=== PATIENT | female | born 1945 | race Caucasian/White ===

== ENCOUNTER 2017-02-18 15:04 | Inpatient (IN) | payer OTHER ==
--- NOTE | ~2017-02-18 | BMI ---
[facility] Nutrition Therapy DATE: 02/19/17 Patient: MARTIN Allen YING Physician: GAURAV Address: [address] [place] [address] Room/Bed: [address] [place] [address], Zip: [place] [address] Admit Date: 02/18/17 Date of : [birth year] Height: 5 7 Weight: 264 120 HIGH BMI NOTE: ANTHROPOMETRICS: HT: 67" WT: 120 KG BMI: 41.4 INTERVENTION: 1. HEART HEALTHY DIET RECOMMENDATIONS: 1. CONTINUE CURRENT DIET IN ORDER TO PROMOTE GRADUAL WEIGHT LOSS TOWARDS A HEALTHY BMI. Respectfully, HAO WATSNO RD, LD Food and Nutritional Services [facility] cc: client file
--- NOTE | ~2017-02-18 | CR170 ---
[facility] A Service of [facility] RADIOLOGY TEXT RESULTS PATIENT: MARTIN HE LOCATION: [place] [address] : [birth year] UNIT #: [id number] AGE: [address]: Norman Mota MD SEX: F ORDER DR: [id number] [facility] [address] [facility]. [place], [place] [address] [id number] I MR#: [id number] Acc #: [id number] NAME: MARTIN HE : 1945 SEX: F STUDY DATE/TIME: 02/19/2017 9:31 UNIT: [facility] ROOM: [facility] STUDY DESCRIPTION: CR Knee 2 Views Rt Attending Physician: Norman Mota M.D. Ordering Physician: Physician Non-Staff Primary Care Physician: Primary Care Physician No MEDICAL IMAGING REPORT This report is preliminary unless electronic signature is present EXAM Right knee 3 views HISTORY Right knee pain and weakness began today after awaking. Difficulty moving for 8 weeks. FINDINGS 3 views are submitted. There are postop changes of right total knee arthroplasty. There is generalized osteopenia. The patient appears to have diffuse soft tissue swelling in the extremity. No fractures are seen. CONCLUSION Postop right total knee arthroplasty. Osteopenia. Diffuse soft tissue swelling. Dictated by... Patrick Sanchez M.D. THIS IS AN ELECTRONICALLY VERIFIED REPORT Patrick Sanchez M.D. at 02/22/2017 2:43 PM JOSE/lazara TD: 02/19/2017 10:31 JOB #: [id number] MEDICAL IMAGING REPORT Page 1 of 1 COPY
--- NOTE | ~2017-02-18 | CO ---
Unit #: [id number] #: [id number] Patient: MARTIN HE [id number] [address] [place], [place] [address] [id number] I MR#: [id number] NAME: MARTIN HE ROOM: 462 Age: 71 Sex: F Admission Date: 02/18/2017 : 1945 Attending Physician: Norman Mota M.D. Consultation Date: 02/18/2017 CONSULTATION REPORT CHIEF COMPLAINT Painful right total knee arthroplasty. HISTORY OF PRESENT ILLNESS Ms. Cid is a 71-year-old female, who was admitted to the hospital for cellulitis of the right lower extremity and right knee pain with inability to ambulate. She states that this began approximately 2 months ago. At that time, she was admitted to [facility] and treated for cellulitis of the left lower extremity and bacteremia. She was discharged to rehab, but is now returned with actually increasing right knee pain. She describes this pain with attempted weightbearing and range of motion of the knee. She reports redness and swelling along the entirety of the extremity. She has difficulty putting full weight on the affected extremity. This has resulted in significant immobility. She underwent a CT scan recently as well, which demonstrated stranding consistent with cellulitis. There is also note made of a right knee effusion. This studies were done at the outside facility and are not available for review. PAST MEDICAL HISTORY Hypertension, asthma, gastroesophageal reflux, endometrial cancer, hypoglycemia, former smoker. PAST SURGICAL HISTORY Hysterectomy, cholecystectomy, appendectomy, right total knee arthroplasty approximately 15 years prior, resected melanoma from her right lower extremity. HOME MEDICATIONS Prilosec, gabapentin, Zoloft, Spiriva, Lasix, isosorbide, losartan, Singulair, QVAR, doxycycline, Lasix, melatonin, Nitrostat, hydrocodone, Tylenol, Zofran, and albuterol. ALLERGIES Penicillin, levofloxacin, and IV dye. SOCIAL HISTORY The patient is . She is a former smoker, but has not smoked in nearly 30 years. She denies alcohol or illicit drug use. She is not working. FAMILY HISTORY Noncontributory to the current illness. Unit #: [id number] #: [id number] Patient: MARTIN HE A REVIEW OF SYSTEMS Ten systems are reviewed and negative except with regard to musculoskeletal complaints as noted above. PHYSICAL EXAMINATION GENERAL APPEARANCE: Overweight, morbidly obese female examined supine on the hospital bed. PSYCHIATRIC: Awake, alert, and oriented to person, place, time, and situation with normal range of mood and affect. CARDIAC: Regular rate and rhythm. PULMONARY: No increased work of breathing. Symmetric chest rise. ABDOMEN: Nondistended. NEUROLOGIC: Intact motor function throughout. SKIN: There is cellulitis around the right lower extremity. The previous surgical incision is noted for total knee arthroplasty. There is mild warmth, but this is along the entirety of the lower extremity and not confined to over the knee joint itself. VASCULAR: Her foot is warm and well perfused. LYMPHATIC: She has lymphedema affecting the right lower extremity, but with no focal lymphadenopathy. MUSCULOSKELETAL: She has pain with attempted logrolling of the right leg as well as with range of motion of the knee. She has motion from approximately 15 degrees of extension to 40 degrees of flexion. DIAGNOSTIC STUDIES LABORATORY RESULTS: Hemoglobin is 10.3. ESR is 113. Urinalysis demonstrates 2+ bacteria. IMAGING STUDIES: 1. No films of the knee are available for review. 2. CT report from the outside facility demonstrates a knee effusion. No comments made on loosening of the components. IMPRESSION This is a 71-year-old female with a painful right total knee arthroplasty concerning for loosening or possible deep infection. We will obtain standard radiographic series in the right knee. We will attempt an aspiration. We will follow up on the remainder of the labs or order CRP as well. This has not been completed ordered. Further disposition pending the results of the aspiration and radiographs. Dictated by... Hosea Elise M.D. RITA/krystina TD: 02/22/2017 00:50 JOB #: [id number] Unit #: [id number] #: [id number] Patient: MARTIN HE A CONSULTATION REPORT Page 1 of 1 X Hosea Elise MD CONSULTATION REPORT
--- NOTE | ~2017-02-18 | CO ---
Unit #: [id number] #: [id number] Patient: MARTIN HE [id number] [address] [place], [place] [address] [id number] I MR#: [id number] NAME: MARTIN HE ROOM: 462 Age: 71 Sex: F Admission Date: 02/18/2017 : 1945 Attending Physician: Norman Mota M.D. Consultation Date: 02/19/2017 CONSULTATION REPORT REASON FOR CONSULTATION Right lower extremity cellulitis. HISTORY OF PRESENT ILLNESS The patient is a 71-year-old, morbidly obese female with hypertension, asthma, gastroesophageal reflux disease, admitted with right lower extremity pain, swelling, redness and there are some concerns of an abnormal CT scan, which was done through a senior care. The patient was admitted to [facility] with left lower extremity problems, was treated and released, had some pancytopenia and was transferred to rehab and ended up coming over here as an outpatient. CT scan was done and diagnosed with right lower extremity cellulitis, and a possible urinary tract infection, started on Rocephin and vancomycin. Infectious Diseases consultation requested for further evaluation and antibiotic management. No fevers, chills, cough, congestion, nausea, vomiting, diarrhea, chest pain, shortness of breath, headaches or dizziness. The CT scan report is not available, but per notes, it showed evidence of cellulitis. No collection of fluid or gas. PAST MEDICAL HISTORY 1. Hypertension. 2. Asthma. 3. Gastroesophageal reflux disease. 4. Uterine cancer. 5. Hypoglycemia. 6. Hysterectomy. 7. Cardiac catheterization. 8. Cholecystectomy. 9. Appendectomy. 10. Bilateral knee replacement. 11. Melanomas removed from right lower extremity. SOCIAL HISTORY Noncontributory. FAMILY HISTORY Noncontributory. ALLERGIES Penicillin, Levaquin and IV dye. CURRENT MEDICATIONS List reviewed. Antibiotics include Rocephin and vancomycin. Unit #: [id number] #: [id number] Patient: MARTIN HE PHYSICAL EXAMINATION GENERAL: Lying in bed, does not seem to be in any distress. VITAL SIGNS: Temperature 97.6, no fever since admission. Pulse 54, respirations 18, blood pressure 109/40. HEENT: Unremarkable. CHEST: Clear to auscultation. HEART: Normal S1, S2. ABDOMEN: Soft, nontender. EXTREMITIES: Right lower extremity has diffuse swelling, which actually is not really different from the left side. There are some areas of erythema, which is scattered around from the knee down to the ankle. No open areas of skin breakdown, bleeding or drainage was noted. DIAGNOSTIC STUDIES IMAGING STUDIES: Lower extremity Dopplers negative for deep vein thrombosis. Knee x-ray shows arthroplasty and osteopenia and some diffuse soft tissue swelling. LABORATORY RESULTS: BUN 28, creatinine 1.3. WBC 4.5, hemoglobin 9, platelets 125. Urinalysis has 1+ leukocyte esterase, 0 to 2 wbc's, 2+ bacteria. Urine culture is E. coli. Blood culture is negative so far. ASSESSMENT 1. Right lower extremity cellulitis. 2. Doubt urinary tract infection. PLAN At this time, I will go ahead and continue with vancomycin and Rocephin. Follow up on blood cultures. Monitor response. Further recommendation depending upon the course. I would like to thank Dr. Mota for requesting us to participate in the care of this patient. We will follow this patient along with you. Dictated by... Joon Early TD: 02/21/2017 00:03 JOB #: [id number] CONSULTATION REPORT Page 1 of 1 X Tyrone Lara MD CONSULTATION REPORT
--- NOTE | ~2017-02-18 | DS ---
Unit #: [id number] #: [id number] Patient: MARTIN HE [id number] [address] [place], [place] [address] [id number] I MR#: [id number] NAME: MARTIN HE. ROOM: 462 Age: 71 Sex: F Admission Date: 02/18/2017 : 1945 Discharge Date: 03/02/2017 Attending Physician: Leslie Perez M.D. Primary Care Physician: No Primary Care Physician DISCHARGE SUMMARY ADDENDUM HOSPITAL COURSE The patient remained in the hospital awaiting precertification for rehab, which is still currently pending. She was seen on the afternoon of the by Dr. Perez and her discharge antibiotics have been adjusted. She is now taking vancomycin 1500 mg IV q.24 h. and cefepime 2 g IV q.12 h. through 04/02/2017. Pharmacy at her discharge facility will need to check vancomycin levels and adjust dosing as necessary. She needs twice weekly CBC, BMP, CRP and sedimentation rate with results faxed to Dr. Perez and reviewed by the facility director and to call Dr. Perez if creatinine is greater than or equal to 1.5 or any abnormal labs. She has been dosed Coumadin 7.5 mg today and will get INR followup on 03/03/2017 with results called to Dr. Umana. Goal INR is 2-3, for duration per Dr. Umana. Dictated by... Leslie Perez M.D. MANUELA/tom TD: 03/02/2017 15:45 JOB #: [id number] DISCHARGE SUMMARY Page 1 of 1 X Leslie Perez MD DISCHARGE SUMMARY
--- NOTE | ~2017-02-18 | OR ---
Unit #: [id number] #: [id number] Patient: MARTIN HE [id number] [address] [address] [id number] I MR#: [id number] NAME: MARTIN HE ROOM: 462 Date of Procedure: 02/18/2017 Admission Date: 02/18/2017 Surgeon: Hosea Elise M.D. : 1945 Attending Physician: Norman Mota M.D. OPERATIVE REPORT PREPROCEDURE DIAGNOSIS Right knee pain and effusion. POSTPROCEDURE DIAGNOSIS Right knee pain and effusion. PROCEDURE PERFORMED Right knee aspiration. INDICATIONS FOR PROCEDURE Ms. Cid is a 71-year-old female with a painful total knee arthroplasty and elevated lab indices and clinical exam concerning for septic arthritis or an infected total joint arthroplasty. Aspiration is indicated. DESCRIPTION OF PROCEDURE The patient was identified and prepped with Betadine solution. The superolateral portal site was utilized to attempt an aspiration of the right knee. The needle was advanced down through subcutaneous tissue and felt to contact further with the distal femur and redirected. Scant amount of bloody fluid was obtained. No significant fluid collection was identified. This was a dry aspirate. The wound was dressed with a simple Band-Aid. We will follow up with the results of the plain film radiographs. She may need further workup with nuclear medicine studies such as a white blood cell labeled bone scan. Dictated by... Joon Honeycutt/krystina TD: 02/22/2017 00:11 JOB #: [id number] Unit #: [id number] #: [id number] Patient: MARTIN HE OPERATIVE REPORT Page 1 of 1 X Hosea Elise MD PROCEDURE OPERATIVE NOTE
--- NOTE | ~2017-02-18 | US85 ---
[facility] A Service of [facility] & [facility] RADIOLOGY TEXT RESULTS PATIENT: MARTIN HE LOCATION: [place] [address]- : [birth year] UNIT #: [id number] AGE: [address]: Norman Mota MD SEX: F ORDER DR: [id number] [facility] [address] [place], [place] [address] [id number] I MR#: [id number] Acc #: [id number] NAME: MARTIN HE : 1945 SEX: F STUDY DATE/TIME: 02/19/2017 14:58 UNIT: [facility] ROOM: [facility] STUDY DESCRIPTION: LE Veins Unilat or Ltd Stdy Attending Physician: Norman Mota M.D. Ordering Physician: [facility] Primary Care Physician: No Primary Care Physician MEDICAL IMAGING REPORT This report is preliminary unless electronic signature is present EXAM Right lower extremity venous Doppler 02/19/2017 HISTORY 71-year-old female, right lower extremity pain x8 weeks, history of knee replacement 15 years ago. FINDINGS 2-D Doppler evaluation of the right lower extremity demonstrates normal flow and compressibility of the major veins of the right lower extremity. No intraluminal thrombus identified. The superficial veins appear patent. There are a few benign-appearing, inguinal lymph nodes. IMPRESSION No sonographic evidence of DVT within the right lower extremity. Dictated by... Titi Bowers M.D. THIS IS AN ELECTRONICALLY VERIFIED REPORT Titi Bowers M.D. at 02/19/2017 7:11 PM Carl TD: 02/19/2017 18:00 JOB #: [id number] MEDICAL IMAGING REPORT Page 1 of 1 COPY
--- NOTE | ~2017-02-18 | NM4 ---
[facility] A Service of [facility] & [facility] RADIOLOGY TEXT RESULTS PATIENT: MARTIN HE LOCATION: [facility] 46- : [birth year] UNIT #: [id number] AGE: [address]: Norman Mota MD SEX: F ORDER DR: [id number] [place] [id number] [facility]. [place], [place] [address] [id number] I MR#: [id number] Acc #: [id number] NAME: MARTIN HE : 1945 SEX: F STUDY DATE/TIME: 02/22/2017 9:16 UNIT: [facility] ROOM: [facility] STUDY DESCRIPTION: MI Bone or Joint 3 Phase Study Attending Physician: Norman Mota M.D. Ordering Physician: Norman Mota M.D. Primary Care Physician: Primary Care Physician No MEDICAL IMAGING REPORT This report is preliminary unless electronic signature is present EXAM Three-phase bone scan HISTORY 71-year-old female, erythema and swelling, right lower extremity. Possible loosening of the tibial component in this patient with a total knee arthroplasty. COMPARISON Right knee films, 02/19/2017 FINDINGS Three-phase bone scan was performed centered over the knees following intravenous administration of 24.4 mCi technetium 99m MDP. Examination demonstrates increased flow to the right lower extremity localizing primarily about the right knee. Immediate blood pool and delayed phase imaging demonstrates increased uptake about the right knee both in the suprapatellar soft tissues but also within the patella and additional intense activity along the proximal tibia beneath the tibial component. In the appropriate clinical setting this would be consistent with loosening. Conventional radiographs does demonstrate some lucency beneath the tibial tray and would be supportive of loosening. Photopenic area is noted within the left knee consistent with left total knee arthroplasty but normal symmetric uptake about the left knee. IMPRESSION Abnormal three-phase bone scan with three-phase positive activity about the right knee with localizing activity primarily to the proximal tibia beneath the tibial component of the patient's right total knee arthroplasty. This in conjunction with conventional radiographic findings is concerning for loosening of the tibial component. Dictated by... [facility] A Service of [facility] & [facility] RADIOLOGY TEXT RESULTS PATIENT: MARTIN HE LOCATION: [place] [address] : [birth year] UNIT #: [id number] AGE: [address]: Norman Mota MD SEX: F ORDER DR: Titi Bowers M.D. THIS IS AN ELECTRONICALLY VERIFIED REPORT Titi Bowers M.D. at 02/23/2017 7:29 AM Jesus TD: 02/22/2017 16:22 JOB #: [id number] MEDICAL IMAGING REPORT Page 1 of 1 COPY
--- NOTE | ~2017-02-18 | CO ---
Unit #: [id number] #: [id number] Patient: MARTIN HE [id number] [address] [place], [place] [address] [id number] I MR#: [id number] NAME: MARTIN HE ROOM: 462 Age: 71 Sex: F Admission Date: 02/18/2017 : 1945 Attending Physician: Norman Mota M.D. Consultation Date: 02/23/2017 CONSULTATION REPORT REASON FOR CONSULTATION Right total knee pain and swelling. HISTORY OF PRESENT ILLNESS Ms. He is a 71-year-old female, who presents today with right total knee pain. She has been treated for right lower extremity cellulitis. Dr. Elise was consulted for right lower extremity cellulitis last week. There was concern for possible right total knee infection. He apparently aspirated the knee, and no fluid was able to be extracted. The patient did have an elevated CRP and sedimentation rate. He ordered a bone scan, which was positive for loose tibial prosthesis. Today, the patient denies any redness or swelling. She reports that the pain is slowly getting better. She was originally seen at [facility] two months ago for left knee pain and swelling. She was started on antibiotics. This improved. When the patient went to a rehab facility for discharge, she noticed the same problems on the right side. She was started on oral doxycycline. Today. She denies any increased pain. She does report history of the inability to weight bear because of pain prior to her admission. PAST MEDICAL HISTORY Significant for hypertension, asthma, GERD, uterine cancer, former smoker, hypoglycemia, and cardiac catheterization. MEDICATIONS Include Prilosec, gabapentin, Zoloft, Spiriva, Lasix, isosorbide, losartan, Singulair, QVAR, doxycycline, Lasix, melatonin, Nitrostat, hydrocodone, Tylenol, Zofran, and albuterol. ALLERGIES Penicillin, Levaquin, and IV dye. PAST SURGICAL HISTORY Significant for hysterectomy, cholecystectomy, appendectomy, bilateral total knee arthroplasty, and melanoma excision. SOCIAL HISTORY The patient is a former smoker, quit about 28 years ago. She denies any alcohol or illicit drug use. FAMILY HISTORY Insignificant. Unit #: [id number] #: [id number] Patient: MARTIN HE REVIEW OF SYSTEMS A 10-organ systems reviewed. The patient denies any blurry vision, congestion, sore throat, shortness of breath, chest pain, abdominal pain, urinary incontinence, numbness, tingling, skin ulcers or lesions, anxiety, or depression. Positive for joint pain. PHYSICAL EXAMINATION GENERAL: No acute distress. Alert and oriented x3. VITAL SIGNS: Temperature 97.9, pulse 80, respirations 18, blood pressure 115/83. HEENT: PERRLA. Nonicteric sclerae. THORAX: Trachea midline. No thyromegaly. CARDIAC: S1 and S2. No extra sounds or murmurs. LUNGS: Clear to auscultation. No rales or rhonchi. ABDOMEN: Nondistended and nontender. Positive bowel sounds. : Deferred. MUSCULOSKELETAL: No tenderness to palpation. Range of motion is between 0 and 60 today. Positive swelling and edema to the entire right lower extremity. NEUROLOGIC: Cranial nerves 2 through 12 intact. SKIN: Cool and dry. PSYCHIATRIC: Good insight. Good judgment. Mood and affect are pleasant. DIAGNOSTIC STUDIES IMAGING STUDIES: A bone scan was reviewed, which was positive for increased uptake at the tibial prosthesis, concerning for loose tibial prosthesis. Elevated CRP and sedimentation rate is noted on the labs. ASSESSMENT Right total knee loose tibial prosthesis, evaluate for infection. PLAN I have discussed treatment options with the patient, and I think eventually she is going to need a revision on her right total knee for a loose prosthesis and possible removal for infection. We will discuss the patient's case with Dr. Umana to make further recommendations. We will continue pain control and antibiotic therapy at this time. Dictated by... Karen Feliciano for Joon Mckeon/krystina TD: 02/24/2017 02:51 JOB #: [id number] CC: Nam/invision Please Delete CONSULTATION REPORT Page 1 of 1 X Xuan Nugent CONSULTATION REPORT
--- NOTE | ~2017-02-18 | XA30 ---
[facility] A Service [facility] RADIOLOGY TEXT RESULTS PATIENT: MARTIN HE LOCATION: [place] [address] : [birth year] UNIT #: [id number] AGE: [address]: Norman Mota MD SEX: F ORDER DR: [id number] [place] [address] [facility]. [place], [place] [address] [id number] I MR#: [id number] Acc #: [id number] NAME: MARTIN HE : 1945 SEX: F STUDY DATE/TIME: 02/23/2017 15:18 UNIT: [facility] ROOM: [facility] STUDY DESCRIPTION: XA Arthrocentesis Major Joint Attending Physician: Norman Mota M.D. Ordering Physician: Adi Umana M.D. Primary Care Physician: No Primary Care Physician MEDICAL IMAGING REPORT This report is preliminary unless electronic signature is present PROCEDURE Ultrasound-guided right knee joint aspiration. DATE OF EXAM 02/23/2017 INDICATIONS 71-year-old female with right knee arthroplasty. History of MRSA, history of positive bone scan and concern for infection. Risks, benefits and alternatives of the procedure were discussed with the patient and informed consent was obtained. In the procedure room, a time-out was performed confirming correct patient and procedure. All elements of maximum sterile-barrier technique utilized according guidelines appropriate for the procedure. TECHNIQUE/FINDINGS Ultrasound was performed which demonstrated a small effusion in the suprapatellar bursa. The overlying skin was prepped and draped in usual sterile fashion. 1% lidocaine utilized to anesthetize the skin and underlying subcutaneous tissues. Next, under ultrasound guidance, a 22-gauge needle was advanced into the suprapatellar bursa via the lateral approach and 4 mL of pink colored fluid was removed, and samples sent to the lab. Needle was removed and a sterile dressing was applied. No immediate complications. IMPRESSION Successful ultrasound-guided right knee joint aspiration. Dictated by... Cristobal Bowers M.D. [facility] A Service [facility] RADIOLOGY TEXT RESULTS PATIENT: MARTIN HE LOCATION: [place] [address] : [birth year] UNIT #: [id number] AGE: [address]: Norman Mota MD SEX: F ORDER DR: THIS IS AN ELECTRONICALLY VERIFIED REPORT Cristobal Bowers M.D. at 02/24/2017 9:09 AM DON/sukumar TD: 02/23/2017 20:47 JOB #: [id number] MEDICAL IMAGING REPORT Page 1 of 1 COPY
--- NOTE | ~2017-02-18 | DS ---
Unit #: [id number] #: [id number] Patient: MARTIN HE [id number] [address] [address] [id number] I MR#: [id number] NAME: MARTIN HE. ROOM: 462 Age: 71 Sex: F Admission Date: 02/18/2017 : 1945 Discharge Date: Attending Physician: Leslie Perez M.D. Primary Care Physician: Primary Care Physician No DISCHARGE SUMMARY ANTICIPATED DATE OF DISCHARGE 03/01/2017. ORIGINAL REASON FOR ADMISSION Right knee swelling/redness. HISTORY OF PRESENT ILLNESS/HOSPITAL COURSE The patient is a 71-year-old female with underlying history of hypertension, asthma, GERD, and knee pain, who presented from rehab facility secondary to right lower extremity cellulitis as well as right knee infusion. Through hospital course, a consultation was initially placed to Dr. Honeycutt and Dr. Yeh in regard to the same. Under 2 different occasions, the patient underwent aspiration with no fluid that was obtained. Ultimately, the patient underwent a bone scan, which did reveal possible loosening of hardware within the right knee itself. In regard to the same Dr. Umana was subsequently consulted for second opinion in regard to evaluation. IR performed a right knee aspiration under ultrasound guidance which did reveal an aspirate 4 mL; however, it was quite turbid and there was no acute bacterial growth which was noted. Ultimately on 02/25/2017, the patient underwent removal of the total knee and placement of a static spacer in the right knee, this was performed by Dr. Umana. Through hospital course Infectious Disease Services was consulted. Dr. Perez and cheryl followed and have continued to follow the patient throughout. Antibiotics have been maintained for the same. Urine culture did reveal E. coli. Knee fluid, knee cultures as well as blood cultures have not yielded any acute bacterial growth. Per ID recommendations vancomycin and ceftriaxone will be continued. Unit #: [id number] #: [id number] Patient: MARTIN HE Final discontinue date is to be determined by Infectious Disease Services. In regard to overall deconditioning as well as chronic debility state, Physical and Occupational Therapy Services both have recommended rehab. We will make appropriate arrangements for that her to be transitioned to rehab likely on 03/01/2017. At the time of discharge, antibiotics should be continued until 04/01/2017. BMP twice a week. Creatinine elevated greater than 1.5. To call ID Services for antibiotics change. CBC, CRP, sedimentation rate weekly while on antibiotics. CURRENT CLINICAL DIAGNOSES 1. Right total knee infection, status post removal with static spacer placement. 2. Right lower extremity cellulitis, improved. 3. Anemia, baseline hemoglobin between 8 and 9. 4. Morbid obesity. 5. Prior history of hypertension, currently on no medications. 6. Generalized anxiety. 7. Depression. 8. Morbid obesity. Final discharge medications as well as further disposition will be dictated by one of my associates at the time of discharge likely in a.m. Dictated by... Norman Mota M.D. JUANIS/krystina TD: 03/01/2017 03:57 JOB #: [id number] DISCHARGE SUMMARY Page 1 of 1 X Norman Mota MD X DISCHARGE SUMMARY
--- NOTE | ~2017-02-18 | HP ---
Unit #: [id number] #: [id number] Patient: MARTIN HE [id number] [address] [address] [id number] MR#: [id number] NAME: MARTIN HE. ROOM: 64856 Age: 71 Sex: F Admission Date: 02/18/2017 : 1945 Attending Physician: See Spence Primary Care Physician: Primary Care Physician No HISTORY AND PHYSICAL CHIEF COMPLAINT Right knee swelling and redness. HISTORY OF PRESENT ILLNESS The patient is a 71-year-old female with history of hypertension, asthma, gastroesophageal reflux disease, and knee pain who presented from the rehab with the abnormal CAT scan. The patient was seen at the [facility] two months ago for similar pain. The patient was diagnosed with cellulitis of the left knee and bacteremia. The patient was started on antibiotics and the patient was discharged to the rehab. However, the patient stated the patient was having problems with the right knee with worsening pain and redness and swelling. The patient was empirically started on oral antibiotic doxycycline at the rehab. The patient had CT of the knee with contrast yesterday that showed right leg and right lateral hindfoot for superficial and deep inflammatory stranding with skin thickening concerning for cellulitis. No fluid collection or gas. Right knee effusions. The patient has been admitted for the above reasons. The patient had the right knee replaced 10 years ago for the arthritis. PAST MEDICAL HISTORY 1. History of hypertension. 2. Asthma. 3. Gastroesophageal reflux disease. 4. Uterine cancer. 5. Former smoker. 6. Hypoglycemia. 7. Previous cardiac catheterization. PAST SURGICAL HISTORY 1. Complete hysterectomy. 2. Cholecystectomy. 3. Appendectomy. 4. Bilateral knee replacement. 5. Melanoma lesions removed from her right lower extremity. HOME MEDICATIONS 1. Prilosec. 2. Gabapentin. 3. Zoloft. 4. Spiriva. 5. Lasix. 6. Isosorbide. 7. Losartan. 8. Singulair. Unit #: [id number] #: [id number] Patient: MARTIN HE 9. QVAR. 10. Doxycycline. 11. Lasix. 12. Melatonin. 13. Nitrostat. 14. Hydrocodone. 15. Tylenol. 16. Zofran. 17. Albuterol. ALLERGIES 1. Penicillin. 2. Levofloxacin. 3. IV dye. SOCIAL HISTORY Patient is . Patient is a former smoker. She quit smoking 28 years ago, she smoked approximately a pack for 20 years. Denies alcohol or any illicit drug abuse. FAMILY HISTORY Father of cancer. REVIEW OF SYSTEMS A 14-point review of systems performed and only pertinent positive findings as described above, remaining are negative. PHYSICAL EXAMINATION VITAL SIGNS: Temperature 97.9, pulse 80, respiratory rate 18, blood pressure 115/83, saturating 98% at room air. GENERAL: Patient is lying on the bed not in acute distress. HEENT: Atraumatic, normocephalic. Pupils equal, round, and reactive to light and accommodation. Dry mucous membrane. NECK: Supple. No JVD. LUNGS: Clear to auscultation bilaterally. No rhonchi, no wheezing. HEART: Regular rate and rhythm. ABDOMEN: Soft, positive bowel sounds. EXTREMITIES: Patient has healed scars from the old knee replacement. Warmth and tenderness on the right knee and swelling on the right knee compared to the left knee. The patient has an old melanoma excisional scar from the right lower leg. NEUROLOGIC: Alert, awake, oriented. No gross focal motor deficit. DIAGNOSTIC STUDIES LABORATORY: Glucose 97, BUN 35, creatinine 1.4, sodium 130, potassium 3.7, chloride 88, bicarb 30, calcium 8.5. INR 1.2. WBC 4.9, hemoglobin 10.3, hematocrit 31.8, platelets 149. ESR 113. UA shows 1+ leukocyte esterase, 2+ urine bacteria. IMAGING: CT of the knee from the outside hospital shows right leg and right lateral hindfoot superficial and deep inflammatory stranding with skin thickening concerning for cellulitis. No fluid collection or gas. Postoperative changes from bilateral total knee arthroplasty and right knee effusion. ASSESSMENT AND PLAN 1. Cellulitis. 2. Knee effusion. Unit #: [id number] #: [id number] Patient: MARTIN HE 3. Hyponatremia. PLAN 1. Admit patient as observation with telemetry. 2. Will start patient on IV antibiotics, empirically with vancomycin as patient has been allergic to penicillin and levofloxacin. 3. Will have the orthopedic evaluation for right knee effusion arthrocentesis to rule out prosthetic joint. 4. Repeat the labs. 5. Hold Lasix tonight for hyponatremia. 6. Further recommendations will follow. Dictated by Joon Veliz TD: 02/18/2017 20:52 JOB #: [id number] HISTORY AND PHYSICAL Page 1 of 1 X X HISTORY AND PHYSICAL
--- NOTE | ~2017-02-18 | DS ---
Unit #: [id number] #: [id number] Patient: MARTIN HE [id number] [address] [place], [place] [address] [id number] I MR#: [id number] NAME: MARTIN HE. ROOM: 462 Age: 71 Sex: F Admission Date: 02/18/2017 : 1945 Discharge Date: 03/01/2017 Attending Physician: Leslie Perez M.D. Primary Care Physician: No Primary Care Physician DISCHARGE SUMMARY ADDENDUM HOSPITAL COURSE The patient remains stable since dictation yesterday. Her white blood cell count has dropped a little bit to 3.5, but this can be monitored at the rehab. She has also been started on Coumadin and daily INR will be done and called to Dr. Umana for adjustment in dose. ADDITIONAL DISCHARGE DIAGNOSES 1. Pancytopenia. 2. Mild protein malnutrition. 3. Depression. 4. Gastroesophageal reflux disease. DISCHARGE MEDICATIONS 1. Albuterol sulfate nebulizer solutions q.6 h. p.r.n. shortness of breath. 2. Tylenol 650 mg p.o. q.6 h. p.r.n. pain. 3. Q-Molly 1 puff b.i.d. 4. Spiriva 18 mcg 1 puff daily. 5. Neurontin 300 mg b.i.d. 6. Zoloft 25 mg daily. 7. Zofran 4 mg p.o. q.6 h. p.r.n. nausea/vomiting. 8. Senokot S 1 tablet b.i.d. 9. Lasix 40 mg in the morning with 20 mg at bedtime. 10. Singulair 10 mg daily. 11. Melatonin 3 mg at bedtime. 12. Percocet 10/325 mg 0.5-1 tablet p.o. q.4 h. p.r.n. pain. 13. Prilosec 20 mg b.i.d. 14. Isosorbide mononitrate ER 30 mg daily. 15. Nitrostat 0.4 mg sublingual q.5 minutes p.r.n. chest pain. 16. Rocephin 1 g IV q.24 h. through 04/01/2017. 17. Vancomycin 1500 mg IV q.24 h. through 04/01/2017. DIET The patient should follow a heart healthy diet. ACTIVITY She can increase her activity as tolerated under the care of physical therapy. She can be ambulating with a walker twice daily and toe-touch weightbearing on the right lower extremity. FOLLOWUP 1. She should have daily INR with results called and or faxed to Unit #: [id number] #: [id number] Patient: MARTIN HE's office for adjustment in Coumadin dosing, which is not currently prescribed, but again will be reevaluated with INR tomorrow, 03/02/2017. 2. She needs weekly CBC, CRP, sedimentation rate with results faxed to Dr. Perez. Needs BMP twice weekly with results faxed to Dr. Perez and if creatinine is greater than 1.5 to call for change of antibiotics. 3. She is to have discontinuation of PICC after last dose of antibiotics on 04/01/2017. 4. The patient will follow up with Dr. Umana in approximately two weeks. Again, contact for INR reading in the morning. Dictated by... Leslie Perez M.D. MANUELA/tom TD: 03/01/2017 09:16 JOB #: [id number] DISCHARGE SUMMARY Page 1 of 1 X Leslie Perez MD X DISCHARGE SUMMARY
--- NOTE | ~2017-02-18 | OR ---
Unit #: [id number] #: [id number] Patient: MARTIN HE [id number] [address] [place], [place] [address] [id number] I MR#: [id number] NAME: MARTIN HE ROOM: 462 Date of Procedure: 02/25/2017 Admission Date: 02/18/2017 Surgeon: Adi Umana M.D. : 1945 Attending Physician: Norman Mota M.D. Primary Care Physician: Primary Care Physician No OPERATIVE REPORT PREOPERATIVE DIAGNOSIS Painful right total knee with possible infection. POSTOPERATIVE DIAGNOSIS Infected right total knee with loose components. PROCEDURES PERFORMED Removal of total knee and placement of static spacer. SHEET METAL INSULATOR Kyle. ESTIMATED BLOOD LOSS 300 mL. CULTURES Fluid and tissue. DESCRIPTION OF PROCEDURE The patient was brought to the holding room. She was already on scheduled IV antibiotics, brought back to the operating room, given a general anesthetic. Tourniquet was placed around the right thigh. The right leg was prepped and draped in a sterile fashion. Tourniquet was inflated to 300. A straight anterior skin incision was made through the old incision. Subcu dissected away and a medial arthrotomy was performed. Patella was slid to the side. Cultures, both fluid and tissue were obtained. Synovium was quite thickened. This was debrided in the medial and lateral gutters and then we were able to flex the knee to about 100 degrees. Preoperatively, it would only flex to about 40. The patella was subluxed laterally. We removed the previous polyethylene and after doing this, we inspected the femur and appeared to have motion, was disimpacted from the distal femur. It was an uncemented component, that was only fibrous fixation. We then inspected the tibia that subsided into varus and it was loose. The cement was removed from the tibia. Further scar tissue was debrided from the medial and lateral gutters. We then removed the scar tissue around the patella and removed the patellar component. After this was done, the knee was irrigated with 3000 mL of bacitracin and it was also irrigated with a dilute Betadine solution. We then fashioned a static spacer out of Palacos cement with 2 g of vancomycin per one package of cement. The knee was held in extension while the cement hardened. After it was hardened, the tourniquet was released. Hemostasis was obtained. A drain positioned and the wound was closed using 0 Vicryl in Unit #: [id number] #: [id number] Patient: MARTIN HE the arthrotomy, 0 and 2-0 Vicryl in the subcutaneous, and anthony in the skin. Dictated by... Joon Mckeon/krystina TD: 02/26/2017 00:49 JOB #: [id number] OPERATIVE REPORT Page 1 of 1 X Adi Umana MD X PROCEDURE OPERATIVE NOTE
[2017-02-18 13:39] LABS: BASOPHIL% 0.2 % (0-2.5); EOSINOPHIL# 0.1 X10e3 (0-0.7); EOSINOPHIL% 1.1 % (0.0-7.0); HEMATOCRIT 31.8 % (35.0-45.0); HEMOGLOBIN 10.3 gm/dL (12.0-16.0); LYMPHOCYTE% 19.8 % (17.0-45.0); MEAN CELL VOLUME 86.5 FL (83-96); MEAN CORPUSCULAR HEMOGLOBIN 27.9 PG (28-34); MEAN CORPUSCULAR HGB CONC 32.2 g/dL (30-36); MEAN PLATELET VOLUME 9.3 FL (6.5-11.5); MONOCYTE# 0.5 X10e3 (0-1.0); MONOCYTE% 10.2 % (3.0-12.0); NEUTROPHIL# 3.3 X10e3 (1.5-7.1); NEUTROPHIL% 68.7 % (40-75); PLATELET COUNT 149 X10e3 (140-420); RED BLOOD COUNT 3.68 X10e (3.90-5.30); RED CELL DISTRIBUTION WIDTH 14.1 % (11.0-15.5); WHITE BLOOD COUNT 4.9 X10e3 (4.0-10.5)
[2017-02-18 13:41] LABS: DIFF IND NO
[2017-02-18 14:05] LABS: CALCIUM SERUM 8.5 mg/dL (8.4-10.2); CREATININE SERUM 1.4 mg/dL (0.6-1.4); POTASSIUM 3.7 mmol/L (3.5-5.1)
[~2017-02-18 15:04] MED LIST: ALBUTEROL MININEB NEB; ALPRAZOLAM PO; BACTRIM DS TABL1 TA1 PO; BENICAR HCT 20-1 TA1 PO; CLEOCIN HCL300 M1 PO; COMBIVENT INH14.7 GM INH; COREG PO; FISH OIL 1,0001 EAC1; LASIX PO; LISINOPRIL PO; LOSARTAN-HCTZ1 EAC3 PO; MAG-OXIDE400 MG PO; MELATONIN3 M4 PO; NEXIUM PO; OMEPRAZOLE20 M1 PO; PERCOCET5/325 PO; SINGULAIR PO; SKELAXIN PO; SPIRIVA18 MCG PO; TOPAMAX PO; ULTRAM PO; ZOCOR PO; ZOLOFT50 MG PO; [UNRECOGNIZED DRUG - OTHER] PO
[2017-02-18] MEDS ORDERED: NEURONTIN100 MG PO (15:38)
[2017-02-18] MEDS ORDERED: ZOLOFT PO (15:39)
[2017-02-18] MEDS ORDERED: LASIX PO (15:39)
[2017-02-18] MEDS ORDERED: DOXYCYCLINE HY100 M3 PO (15:41)
[2017-02-18] MEDS ORDERED: QVAR7.3 G1 INH (15:41)
[2017-02-18] MEDS ORDERED: NITROSTAT0.4 MG SL (15:44)
[2017-02-18] MEDS ORDERED: TYL325 PO (15:45)
[2017-02-18] MEDS ORDERED: ZOFRAN PO (15:46)
[2017-02-18 15:57] LABS: URINE SOURCE CLEAN CATCH
[2017-02-18 16:04] LABS: URINE APPEARANCE CLEAR; URINE BILIRUBIN NEG (NEG); URINE BLOOD NEG (NEG); URINE COLOR YELLOW; URINE GLUCOSE NEG (NEG); URINE KETONE NEG (NEG); URINE LEUKOCYTE ESTERASE 1+ (NEG); URINE NITRATE NEG (NEG); URINE PH 6.5 (5-8); URINE PROTEIN NEG (NEG); URINE SPECIFIC GRAVITY 1.008 (1.003-1.035); URINE UROBILINOGEN 0.2 MG/DL (NEG)
[2017-02-18 16:07] LABS: CULTURE INDICATED? YES; URBCS1 AUWI 0-2 /[HPF] (0-2); URINE BACTERIA AUWI 2+ (NEGATIVE); URINE SQUAMOUS EPITHELIAL CELL NONE SEEN /[HPF]
[2017-02-19 04:13] LABS: BASOPHIL% 0.6 % (0-2.5); EOSINOPHIL# 0.1 X10e3 (0-0.7); EOSINOPHIL% 1.9 % (0.0-7.0); HEMATOCRIT 27.6 % (35.0-45.0); LYMPHOCYTE# 1.2 X10e3 (1.0-3.5); LYMPHOCYTE% 26.8 % (17.0-45.0); MEAN CELL VOLUME 86.9 FL (83-96); MEAN CORPUSCULAR HEMOGLOBIN 28.3 PG (28-34); MEAN CORPUSCULAR HGB CONC 32.5 g/dL (30-36); MEAN PLATELET VOLUME 9.2 FL (6.5-11.5); MONOCYTE# 0.6 X10e3 (0-1.0); MONOCYTE% 13.7 % (3.0-12.0); NEUTROPHIL# 2.6 X10e3 (1.5-7.1); PLATELET COUNT 125 X10e3 (140-420); RED BLOOD COUNT 3.17 X10e (3.90-5.30); RED CELL DISTRIBUTION WIDTH 13.6 % (11.0-15.5); WHITE BLOOD COUNT 4.5 X10e3 (4.0-10.5)
[2017-02-19 04:17] LABS: DIFF IND NO
[2017-02-19 04:40] LABS: BUN/CREATININE RATIO 21.53; CALCIUM SERUM 8.1 mg/dL (8.4-10.2); CREATININE SERUM 1.3 mg/dL (0.6-1.4); GLOM FILT RATE Estimated 41.5 mL/min (>60); POTASSIUM 3.4 mmol/L (3.5-5.1)
[2017-02-20 03:33] LABS: BASOPHIL% 0.4 % (0-2.5); EOSINOPHIL# 0.1 X10e3 (0-0.7); EOSINOPHIL% 1.7 % (0.0-7.0); HEMATOCRIT 28.8 % (35.0-45.0); HEMOGLOBIN 9.3 gm/dL (12.0-16.0); LYMPHOCYTE% 28.8 % (17.0-45.0); MEAN CORPUSCULAR HEMOGLOBIN 28.1 PG (28-34); MEAN CORPUSCULAR HGB CONC 32.3 g/dL (30-36); MEAN PLATELET VOLUME 8.9 FL (6.5-11.5); MONOCYTE# 0.5 X10e3 (0-1.0); MONOCYTE% 13.6 % (3.0-12.0); NEUTROPHIL% 55.5 % (40-75); PLATELET COUNT 115 X10e3 (140-420); RED BLOOD COUNT 3.32 X10e (3.90-5.30); RED CELL DISTRIBUTION WIDTH 13.9 % (11.0-15.5); WHITE BLOOD COUNT 3.6 X10e3 (4.0-10.5)
[2017-02-20 03:34] LABS: DIFF IND NO
[2017-02-20 04:04] LABS: BUN/CREATININE RATIO 22.22; CALCIUM SERUM 8.3 mg/dL (8.4-10.2); CREATININE SERUM 0.9 mg/dL (0.6-1.4); GLOM FILT RATE Estimated 64.8 mL/min (>60); MAGNESIUM 1.8 mg/dL (1.6-3.0); POTASSIUM 3.5 mmol/L (3.5-5.1)
[2017-02-22 04:07] LABS: BUN/CREATININE RATIO 12.5; CALCIUM SERUM 7.9 mg/dL (8.4-10.2); CREATININE SERUM 0.8 mg/dL (0.6-1.4); GLOM FILT RATE Estimated 74.8 mL/min (>60); POTASSIUM 3.8 mmol/L (3.5-5.1)
[2017-02-22 08:46] LABS: BASOPHIL% 0.4 % (0-2.5); EOSINOPHIL# 0.1 X10e3 (0-0.7); EOSINOPHIL% 2.2 % (0.0-7.0); HEMATOCRIT 29.1 % (35.0-45.0); HEMOGLOBIN 9.5 gm/dL (12.0-16.0); LYMPHOCYTE# 0.9 X10e3 (1.0-3.5); LYMPHOCYTE% 29.3 % (17.0-45.0); MEAN CELL VOLUME 86.8 FL (83-96); MEAN CORPUSCULAR HEMOGLOBIN 28.4 PG (28-34); MEAN CORPUSCULAR HGB CONC 32.7 g/dL (30-36); MEAN PLATELET VOLUME 8.6 FL (6.5-11.5); MONOCYTE# 0.4 X10e3 (0-1.0); MONOCYTE% 11.6 % (3.0-12.0); NEUTROPHIL# 1.8 X10e3 (1.5-7.1); NEUTROPHIL% 56.5 % (40-75); PLATELET COUNT 129 X10e3 (140-420); RED BLOOD COUNT 3.35 X10e (3.90-5.30); RED CELL DISTRIBUTION WIDTH 14.5 % (11.0-15.5); WHITE BLOOD COUNT 3.2 X10e3 (4.0-10.5)
[2017-02-22 08:47] LABS: DIFF IND NO
[2017-02-23 05:14] LABS: MEAN CELL VOLUME 87.3 FL (83-96); MEAN CORPUSCULAR HEMOGLOBIN 28.2 PG (28-34); MEAN CORPUSCULAR HGB CONC 32.3 g/dL (30-36); RED BLOOD COUNT 3.2 X10e (3.90-5.30); RED CELL DISTRIBUTION WIDTH 14.3 % (11.0-15.5)
[2017-02-23 16:23] LABS: BODY FLUID SOURCE OTHER
[2017-02-23 16:25] LABS: BODY FLUID APPEARANCE TURBID
[2017-02-24 04:06] LABS: HEMATOCRIT 27.7 % (35.0-45.0); MEAN CELL VOLUME 86.5 FL (83-96); MEAN CORPUSCULAR HGB CONC 32.4 g/dL (30-36); MEAN PLATELET VOLUME 8.6 FL (6.5-11.5); RED BLOOD COUNT 3.2 X10e (3.90-5.30); RED CELL DISTRIBUTION WIDTH 14.2 % (11.0-15.5); WHITE BLOOD COUNT 3.6 X10e3 (4.0-10.5)
[2017-02-24 04:34] LABS: BUN/CREATININE RATIO 8.75; CALCIUM SERUM 7.8 mg/dL (8.4-10.2); CREATININE SERUM 0.8 mg/dL (0.6-1.4); GLOM FILT RATE Estimated 74.8 mL/min (>60); POTASSIUM 3.7 mmol/L (3.5-5.1)
[2017-02-26 04:03] LABS: BASOPHIL% 0.3 % (0-2.5); DIFF IND NO; EOSINOPHIL% 0.3 % (0.0-7.0); HEMATOCRIT 29.5 % (35.0-45.0); HEMOGLOBIN 9.4 gm/dL (12.0-16.0); LYMPHOCYTE# 1.4 X10e3 (1.0-3.5); LYMPHOCYTE% 17.1 % (17.0-45.0); MEAN CORPUSCULAR HEMOGLOBIN 28.1 PG (28-34); MEAN CORPUSCULAR HGB CONC 31.9 g/dL (30-36); MONOCYTE# 0.7 X10e3 (0-1.0); MONOCYTE% 7.8 % (3.0-12.0); NEUTROPHIL# 6.2 X10e3 (1.5-7.1); NEUTROPHIL% 74.5 % (40-75); PLATELET COUNT 131 X10e3 (140-420); RED BLOOD COUNT 3.35 X10e (3.90-5.30); RED CELL DISTRIBUTION WIDTH 14.8 % (11.0-15.5); WHITE BLOOD COUNT 8.4 X10e3 (4.0-10.5)
[2017-02-26 04:23] LABS: BUN/CREATININE RATIO 13.75; CREATININE SERUM 0.8 mg/dL (0.6-1.4); GLOM FILT RATE Estimated 74.8 mL/min (>60); POTASSIUM 4.4 mmol/L (3.5-5.1)
[2017-02-27 04:31] LABS: BASOPHIL% 0.5 % (0-2.5); EOSINOPHIL# 0.1 X10e3 (0-0.7); EOSINOPHIL% 1.5 % (0.0-7.0); HEMATOCRIT 25.1 % (35.0-45.0); LYMPHOCYTE# 0.9 X10e3 (1.0-3.5); LYMPHOCYTE% 17.2 % (17.0-45.0); MEAN CELL VOLUME 87.8 FL (83-96); MEAN CORPUSCULAR HGB CONC 31.8 g/dL (30-36); MONOCYTE# 0.5 X10e3 (0-1.0); MONOCYTE% 9.3 % (3.0-12.0); NEUTROPHIL# 3.8 X10e3 (1.5-7.1); NEUTROPHIL% 71.5 % (40-75); RED BLOOD COUNT 2.85 X10e (3.90-5.30); RED CELL DISTRIBUTION WIDTH 14.4 % (11.0-15.5); WHITE BLOOD COUNT 5.2 X10e3 (4.0-10.5)
[2017-02-27 04:35] LABS: BUN/CREATININE RATIO 15.71; CREATININE SERUM 0.7 mg/dL (0.6-1.4); GLOM FILT RATE Estimated 87.8 mL/min (>60); POTASSIUM 4.1 mmol/L (3.5-5.1)
[2017-02-27 04:59] LABS: DIFF IND YES; PLATELET COUNT 92 X10e3 (140-420)
[2017-02-27 05:02] LABS: PLATELET ESTIMATE DECREASED (NORMAL)
[2017-02-27 05:03] LABS: POIKILOCYTOSIS SL; ROULEAUX SLIGHT
[2017-02-28 03:36] LABS: BASOPHIL% 0.4 % (0-2.5); EOSINOPHIL# 0.1 X10e3 (0-0.7); EOSINOPHIL% 1.8 % (0.0-7.0); HEMATOCRIT 23.7 % (35.0-45.0); HEMOGLOBIN 7.6 gm/dL (12.0-16.0); LYMPHOCYTE# 1.2 X10e3 (1.0-3.5); MEAN CORPUSCULAR HEMOGLOBIN 28.2 PG (28-34); MEAN PLATELET VOLUME 9.4 FL (6.5-11.5); MONOCYTE# 0.4 X10e3 (0-1.0); MONOCYTE% 9.8 % (3.0-12.0); NEUTROPHIL# 2.5 X10e3 (1.5-7.1); RED CELL DISTRIBUTION WIDTH 14.5 % (11.0-15.5); WHITE BLOOD COUNT 4.2 X10e3 (4.0-10.5)
[2017-02-28 03:40] LABS: DIFF IND NO; PLATELET COUNT 92 X10e3 (140-420)
[2017-02-28 03:46] LABS: BUN/CREATININE RATIO 11.25; CALCIUM SERUM 7.8 mg/dL (8.4-10.2); CREATININE SERUM 0.8 mg/dL (0.6-1.4); GLOM FILT RATE Estimated 74.8 mL/min (>60); POTASSIUM 3.6 mmol/L (3.5-5.1)
[2017-03-01 04:26] LABS: EOSINOPHIL# 0.3 X10e3 (0-0.7); EOSINOPHIL% 9.3 % (0.0-7.0); HEMATOCRIT 23.9 % (35.0-45.0); HEMOGLOBIN 7.7 gm/dL (12.0-16.0); LYMPHOCYTE# 0.8 X10e3 (1.0-3.5); LYMPHOCYTE% 23.1 % (17.0-45.0); MEAN CELL VOLUME 87.7 FL (83-96); MEAN CORPUSCULAR HEMOGLOBIN 28.4 PG (28-34); MEAN CORPUSCULAR HGB CONC 32.3 g/dL (30-36); MONOCYTE# 0.7 X10e3 (0-1.0); MONOCYTE% 19.4 % (3.0-12.0); NEUTROPHIL# 1.7 X10e3 (1.5-7.1); NEUTROPHIL% 48.2 % (40-75); PLATELET COUNT 94 X10e3 (140-420); RED BLOOD COUNT 2.73 X10e (3.90-5.30); RED CELL DISTRIBUTION WIDTH 14.8 % (11.0-15.5); WHITE BLOOD COUNT 3.5 X10e3 (4.0-10.5)
[2017-03-01 04:28] LABS: DIFF IND NO
[2017-03-01 04:34] LABS: BUN/CREATININE RATIO 11.42; CALCIUM SERUM 7.8 mg/dL (8.4-10.2); CREATININE SERUM 0.7 mg/dL (0.6-1.4); GLOM FILT RATE Estimated 87.8 mL/min (>60); POTASSIUM 3.8 mmol/L (3.5-5.1)
[2017-03-02 04:00] LABS: HEMATOCRIT 23.2 % (35.0-45.0); HEMOGLOBIN 7.5 gm/dL (12.0-16.0); MEAN CELL VOLUME 87.8 FL (83-96); MEAN CORPUSCULAR HEMOGLOBIN 28.5 PG (28-34); MEAN CORPUSCULAR HGB CONC 32.5 g/dL (30-36); MEAN PLATELET VOLUME 8.8 FL (6.5-11.5); RED BLOOD COUNT 2.64 X10e (3.90-5.30); RED CELL DISTRIBUTION WIDTH 14.9 % (11.0-15.5); WHITE BLOOD COUNT 3.3 X10e3 (4.0-10.5)
[2017-03-02 04:07] LABS: INR 1.2; PROTHROMBIN TIME (PATIENT) 12.5 SECONDS (9.6-11.5)
[2017-03-02 04:15] LABS: BUN/CREATININE RATIO 8.57; CALCIUM SERUM 7.8 mg/dL (8.4-10.2); CREATININE SERUM 0.7 mg/dL (0.6-1.4); GLOM FILT RATE Estimated 87.8 mL/min (>60); POTASSIUM 3.5 mmol/L (3.5-5.1)
== END 2017-03-02 21:50 | DRG 464 ==
LOC: CED 15:04 → CEDOF 18:54 → C4C 21:39
PROVIDERS: Emergency Medicine; Family Medicine; Internal Medicine; Nurse Practitioner Family; Orthopaedic Surgery; Physician Assistant Medical; Specialist
PROC: 0S9C3ZZ Drainage of Right Knee Joint, Percutaneous Approach (ICD-10-PCS; 2017-02-18)
PROC: 0S9C3ZX Drainage of Right Knee Joint, Percutaneous Approach, Diagnostic (ICD-10-PCS; 2017-02-23)
PROC: 0SHC08Z Insertion of Spacer into Right Knee Joint, Open Approach (ICD-10-PCS; 2017-02-25)
PROC: 0SPC0JZ Removal of Synthetic Substitute from Right Knee Joint, Open Approach (ICD-10-PCS; principal; 2017-02-25 09:00)
PROC: 02HV33Z Insertion of Infusion Device into Superior Vena Cava, Percutaneous Approach (ICD-10-PCS; 2017-02-27)
PROC: 4A02X4A Measurement of Cardiac Electrical Activity, Guidance, External Approach (ICD-10-PCS; 2017-02-27)
DX: T84.032A Mechanical loosening of internal right knee prosthetic joint, initial encounter (principal); L03.115 Cellulitis of right lower limb; D61.818 Other pancytopenia; T84.53XA Infection and inflammatory reaction due to internal right knee prosthesis, initial encounter; E87.1 Hypo-osmolality and hyponatremia; E44.1 Mild protein-calorie malnutrition; N39.0 Urinary tract infection, site not specified; Z68.41 Body mass index [BMI] 40.0-44.9, adult; I10 Essential (primary) hypertension; K21.9 Gastro-esophageal reflux disease without esophagitis; Z87.891 Personal history of nicotine dependence; Z90.710 Acquired absence of both cervix and uterus; Z90.49 Acquired absence of other specified parts of digestive tract; Z96.653 Presence of artificial knee joint, bilateral; Z85.820 Personal history of malignant melanoma of skin; Z88.0 Allergy status to penicillin; Z91.041 Radiographic dye allergy status; M25.461 Effusion, right knee; J45.909 Unspecified asthma, uncomplicated; Z85.42 Personal history of malignant neoplasm of other parts of uterus; Y79.2 Prosthetic and other implants, materials and accessory orthopedic devices associated with adverse incidents; M62.3 Immobility syndrome (paraplegic); E66.9 Obesity, unspecified; B96.20 Unspecified Escherichia coli [E. coli] as the cause of diseases classified elsewhere
CPT/HCPCS: 36415; 73560; 77002; 78315; 80048; 80202; 81003; 83735; 85025; 85027; 85610; 85652; 86140; 86850; 86900; 86901; 87040; 87070; 87075; 87086; 87088; 87186; 87205; 89051; 93971; 94640; 94664; 94760; 97110; 97116; 97163; 97164; 97166; 97168; 97530; 99285; A9503; G8978-GO; G8978-GP; G8979-GO; G8979-GP; G8987-GO; G8988-GO; J0692; J0696; J1170; J1642; J1650; J2270; J2310; J2370; J2405; J2550; J3010; J3370

== ENCOUNTER 2017-04-08 14:21 | Inpatient (IN) | payer MEDICARE, OTHER ==
--- NOTE | ~2017-04-08 | CT4 ---
[facility] A Service of [facility] & [facility] RADIOLOGY TEXT RESULTS PATIENT: MARTIN HE LOCATION: [facility] 339-01 : [birth year] UNIT #: [id number] AGE: [address]: Norman Mota MD SEX: F ORDER DR: [id number] [facility] [address] [place], [place] [address] [id number] I MR#: [id number] Acc #: [id number] NAME: MARTIN HE : 1945 SEX: F STUDY DATE/TIME: 04/08/2017 16:49 UNIT: A U ROOM: 339 STUDY DESCRIPTION: CT Abd and Pelv Wo Cont Attending Physician: Dulce Fine M.D. Ordering Physician: Elliott Patiño M.D. Primary Care Physician: No Primary Care Physician MEDICAL IMAGING REPORT This report is preliminary unless electronic signature is present EXAM CT abdomen and pelvis without contrast, 04/08/17 HISTORY Nausea, vomiting and diarrhea beginning yesterday accompanied by weakness. TECHNIQUE Axial images were obtained without contrast and compared with the previous study from 05/11/16. This CT exam was performed with one or more of the following radiation dose reduction techniques: automatic exposure control, adjustment of mA and/or kV according to patient size, and iterative reconstruction. FINDINGS Moderate splenomegaly is seen and unchanged from the previous exam. The liver has irregular margins consistent with cirrhosis, and this has also unchanged. The pancreas, kidneys and adrenal are unremarkable. There is no evidence of ascites. No distended small bowel loops are seen. The colon is fluid filled and moderately distended with air fluid levels. The distention can be followed all the way down to the rectum. No evidence of a focal mechanical obstruction. This is accompanied by Mild pneumatosis in the sigmoid colon wall. This could reflect colitis or bowel ischemia. It could simply reflect benign pneumatosis as well. IMPRESSION Colonic distension. The colon is fluid filled and air fluid levels. Pneumatosis is seen to a mild degree predominantly in the rectosigmoid. It probably represents benign pneumatosis, possibility of bowel ischemia cannot be excluded. This could also be secondary to colitis, although the mucosa is not markedly thickened. The mucosa in the proximal colon is within normal limits. [facility] A Service of [facility] RADIOLOGY TEXT RESULTS PATIENT: MARTIN HE LOCATION: [facility] 339-01 : [birth year] UNIT #: [id number] AGE: [address]: Norman Mota MD SEX: F ORDER DR: Dictated by... Sebastian Sena M.D. THIS IS AN ELECTRONICALLY VERIFIED REPORT Sebastian Sena M.D. at 04/09/2017 10:03 AM JOANA/mary TD: 04/09/2017 00:45 JOB #: [id number] MEDICAL IMAGING REPORT Page 1 of 1 COPY
--- NOTE | ~2017-04-08 | BMI ---
[facility] Nutrition Therapy DATE: 04/10/17 Patient: MARTIN HE Physician: ADY Address: [address] [place] [address] Room/Bed: [address] [place] [address], Zip: [place] [address] Admit Date: 04/09/17 Date of : [birth year] Height: 5 7 Weight: 255 116 HIGH BMI NOTE: ANTHROPOMETRICS: HT: 67" WT: 116 KG BMI: 40.1 RECOMMENDATIONS: 1. ONCE MEDICALLY FEASIBLE, ADVANCED THE PT TO A HEART HEALTHY DIET TOLERATED. Respectfully, HAO WATSON RD, LD [facility] cc: client file
--- NOTE | ~2017-04-08 | HP ---
Unit #: [id number] #: [id number] Patient: MARTIN HE [id number] [facility]. [place], [place] [address] [id number] I MR#: [id number] NAME: MARTIN HE. ROOM: [facility] Age: 71 Sex: F Admission Date: 04/08/2017 : 1945 Attending Physician: Dulce Fine M.D. Primary Care Physician: No Primary Care Physician HISTORY AND PHYSICAL CHIEF COMPLAINT Nausea, vomiting, diarrhea, weakness. HISTORY OF PRESENT ILLNESS The patient is a 71-year-old female with past medical history of right total knee infection, morbid obesity, hypertension, depression, asthma, GERD, uterine cancer, melanoma, who presented to the emergency department from rehab for evaluation of the above. Of note, the patient was hospitalized at [facility], February 18 through March 02, 2017, for right total knee infection. She underwent removal of total knee with placement of static spacer. She was discharged to rehab on vancomycin and cefepime. The last dose of antibiotic was on April 02, 2017. Per the patient's daughter, the patient had what sounds like positive blood cultures on April 05, 2017. Again, per the patient's daughter, Dr. Umana's office said that they did not want the patient on antibiotics for two weeks. The patient has had increased swelling involving the right knee. Yesterday, she started having vomiting and diarrhea. She has apparently had a large volume of diarrhea. Today, she had generalized weakness. She is nonweightbearing at the [facility]. In the emergency department, CT of the abdomen and pelvis was done and showed pneumatosis involving the rectosigmoid concerning for possible ischemic bowel versus colitis. The emergency room physician, Dr. Patiño, spoke with Dr. Aranda of Surgery, who recommended antibiotics and NPO status. She is being admitted to [facility] for evaluation and further treatment. PAST MEDICAL HISTORY 1. Admission to [facility], February 18 through March 02, 2017, for right total knee infection. She was discharged to rehab on vancomycin and cefepime. 2. Anemia. 3. Morbid obesity with a BMI of 43 present on admission. 4. Hypertension. 5. Depression. 6. Asthma. 7. GERD. 8. Uterine cancer status post hysterectomy. 9. Melanoma status post excision. PAST SURGICAL HISTORY 1. Cardiac catheterization. Unit #: [id number] #: [id number] Patient: MARTIN HE 2. Hysterectomy. 3. Appendectomy. 4. Bilateral knee surgery. 5. Excision of melanoma. SOCIAL HISTORY The patient was living alone prior to issues with her right knee. She is currently at rehab. She is a former smoker. There is no alcohol use. Her CODE status is a FULL CODE. She is currently nonweightbearing to the right lower extremity. FAMILY HISTORY Notable for her dad having malignancy. ALLERGIES Penicillin, Levaquin. HOME MEDICATIONS 1. Prilosec. 2. Neurontin. 3. Zoloft. 4. Spiriva. 5. Isosorbide. 6. Losartan and HCTZ. 7. Singulair. 8. Lasix. 9. Melatonin. 10. Nitroglycerin. 11. Hydrocodone. 12. Acetaminophen. 13. Zofran. Home medications will need to be reviewed and verified. REVIEW OF SYSTEMS A complete review of systems is negative except as indicated in the HPI, somewhat limited from the patient currently due to the patient receiving Ativan prior to CT scan and currently being somewhat sleepy. PHYSICAL EXAMINATION GENERAL APPEARANCE: The patient is a female who is sleeping but awakes to voice. VITAL SIGNS: Temperature 98.7. Pulse 82. Respirations 17. Blood pressure 119/55. Oxygen saturation 93% on two liters. HEENT: The head is atraumatic. Mucous membranes are moist. NECK: Supple. Trachea is midline. CARDIOVASCULAR: Regular rate and rhythm. LUNGS: Clear to auscultation bilaterally with no increased work of breathing. ABDOMEN: Soft. She is mildly tender to palpation throughout. Bowel sounds are present in all four quadrants. EXTREMITIES: There is a knee immobilizer in the right lower extremity. NEUROLOGIC: The patient was previously awake, alert, oriented x3 prior to Ativan. She was moving all extremities. PSYCHIATRIC: Mood and affect are normal. The patient is cooperative. SKIN: Of examined areas is warm and dry. ASSESSMENT Unit #: [id number] #: [id number] Patient: MARTIN HE The patient is a 71-year-old female with: 1. Nausea, vomiting, diarrhea. 2. Pneumatosis involving the rectosigmoid concerning for ischemic colitis versus more likely Clostridium difficile colitis. 3. Acute kidney injury. The patient's creatinine was 0.7 on March 02, 2017. It is 1.6 today. 4. History of right total knee infection with last dose of vancomycin and cefepime on April 02. 5. Anemia. 6. Morbid obesity with a BMI of 43 present on admission. 7. Hypertension. 8. Depression. 9. Asthma. 10. GERD. 11. Uterine cancer. 12. History of melanoma. 13. Former smoker. 14. Possible urinary tract infection. I have not started antibiotics for urinary tract infection due to likely C. diff. We will await culture results and recommendations of Dr. Lara. PLAN 1. Admit for observation to intermediate level. 2. NPO except medications. 3. Normal saline at 75 mL/hour. 4. Stool for ova and parasites, C. diff., culture and sensitivity. 5. Flagyl 500 mg p.o. daily. 6. PRN Zofran. 7. STAT lactic acid. 8. Consult Dr. Aranda regarding possible ischemic colitis versus C. diff. 9. Consult Dr. Umana regarding history of right total knee infection. 10. Consult Dr. Lara regarding right total knee infection, possible C. diff. 11. Blood cultures x2. 12. Urine culture and sensitivity on urine in the lab. 13. Neuro checks. 14. Strict Is and Os. 15. Repeat labs in the morning. Dictated by Joon King/shelly TD: 04/09/2017 06:02 JOB #: [id number] Unit #: [id number] #: [id number] Patient: MARTIN HE HISTORY AND PHYSICAL Page 1 of 1 X Dulce Fine MD HISTORY AND PHYSICAL
--- NOTE | ~2017-04-08 | CO ---
Unit #: [id number] #: [id number] Patient: MARTIN HE [id number] [address] [id number] [facility]. [place], [place] [address] [id number] I MR#: [id number] NAME: MARTIN HE. ROOM: [facility] Age: 71 Sex: F Admission Date: 04/09/2017 : 1945 Attending Physician: Norman Mota M.D. Consultation Date: 04/09/2017 CONSULTATION REPORT BRIEF HISTORY The patient is a 71-year-old who is status post multiple orthopedic procedures and has been on antibiotics for approximately 1 week, who presents with loose bowel movements, lower abdominal pain, some nausea and vomiting. She has had no fevers or chills. Was at rehab, here recently. PAST MEDICAL HISTORY Hypertension, diabetes, gastroesophageal reflux disease. PAST SURGICAL HISTORY She has had a hysterectomy, cholecystectomy, bilateral knee replacements, appendectomy, and thyroidectomy. HOME MEDICATIONS Gabapentin, Prilosec, Zoloft, albuterol, Nitrostat, doxycycline, Lasix. ALLERGIES She has multiple allergies. SOCIAL HISTORY No smoking. No alcohol. FAMILY HISTORY Negative for GI malignancy. REVIEW OF SYSTEMS No cardiopulmonary complaints at this time. Else, 10 systems reviewed and negative. PHYSICAL EXAMINATION GENERAL: She is awake, alert, appropriate. VITAL SIGNS: Currently, afebrile. HEENT: Unremarkable. NECK: Supple. No JVD. Trachea midline. LUNGS: Clear to auscultation. Bilateral breath sounds symmetric. CARDIOVASCULAR: Regular rate and rhythm. ABDOMEN: Soft. It is mildly tender in the left lower quadrant. No rebound. No masses. No hernias. EXTREMITIES: No clubbing, cyanosis, or edema. DIAGNOSTIC STUDIES LABORATORY RESULTS: Show a white count of 13, hemoglobin 10.6. IMAGING STUDIES: CT scan shows air fluid levels with the left colon with Unit #: [id number] #: [id number] Patient: MARTIN HE some mild pneumatosis. ASSESSMENT AND PLAN Colitis. Does not appear to be acute abdomen. Agree with current plan with Flagyl and await stool studies. We will reassess. Dictated by... Patrick Childs M.D. XANDERO/krystina TD: 04/10/2017 01:21 JOB #: [id number] CONSULTATION REPORT Page 1 of 1 X Patrick Childs MD CONSULTATION REPORT
--- NOTE | ~2017-04-08 | CO ---
Unit #: [id number] #: [id number] Patient: MARTIN HE [id number] [address] [place], [place] [address] [id number] I MR#: [id number] NAME: MARTIN HE. ROOM: [facility] Age: 71 Sex: F Admission Date: 04/08/2017 : 1945 Attending Physician: Norman Mota M.D. Primary Care Physician: Miranda Primary Care Physician Consultation Date: 04/09/2017 CONSULTATION REPORT REASON FOR CONSULTATION Status post right total knee removal with antibiotic spacer. REASON FOR ADMISSION Nausea, vomiting, diarrhea, and weakness. HISTORY OF PRESENT ILLNESS Patient is a pleasant, 71-year-old female that has had right total knee infections. The patient was hospitalized February 18 through March 02 for a right total knee infection. The patient underwent right total knee removal with static spacer placement. Patient was discharged to rehab on vancomycin and Cefepime. The last dose of antibiotic was April 02. Per the medical record, the daughter of the patient reports she may have had positive blood cultures on April 05. Patient reports since yesterday she started having nausea, vomiting, and diarrhea. She presented to the hospital with these symptoms. We were asked to see the patient in consultation just because she has a spacer and history of right knee infection. PAST MEDICAL HISTORY 1. Hospitalization at [facility] February 18 through March 02 for right total knee infection. Discharged to rehab on vancomycin and Cefepime. 2. Anemia. 3. Morbid obesity. 4. Hypertension. 5. Depression. 6. Asthma. 7. GERD. 8. Uterine cancer, status post hysterectomy. 9. Melanoma, status post excision. PAST SURGICAL HISTORY Cardiac catheterization, hysterectomy, appendectomy, bilateral knee surgery, and excision of melanoma. FAMILY HISTORY Dad having malignancy. SOCIAL HISTORY The patient was living alone prior to her right knee. She is currently in a rehab. She is a former smoker. She does not drink alcohol. HOME MEDICATIONS Unit #: [id number] #: [id number] Patient: MARTIN HE 1. Prilosec. 2. Neurontin. 3. Zoloft. 4. Spiriva. 5. Isosorbide. 6. Losartan. 7. Hydrochlorothiazide. 8. Singulair. 9. Lasix. 10. Melatonin. 11. Nitroglycerin. 12. Hydrocodone. 13. Acetaminophen. 14. Zofran. REVIEW OF SYSTEMS Patient does admit to nausea, vomiting, and diarrhea. Patient does not admit to any increased pain in her right knee. PHYSICAL EXAMINATION GENERAL APPEARANCE: She is a well developed, obese female. VITAL SIGNS: Her temperature is 97.9, blood pressure 120/62, heart rate 90 and regular, and respirations 18. HEENT: Normocephalic and atraumatic. PERRLA. Extraocular movements intact. Conjunctivae clear. NECK: Supple. CARDIOVASCULAR: S1 and S2. LUNGS: Clear to auscultation. Decreased breath sounds bilaterally. ABDOMEN: Patient was mildly tender to palpate throughout, but positive bowel sounds. EXTREMITIES: Patient's right lower extremity is in knee immobilizer. This was removed and knee was examined, which did show she had a well healed incision. She did not have any effusion. She did not have any drainage. Her skin was warm, dry, and intact. The knee immobilizer is because she has a static spacer. ASSESSMENT 1. Nausea, vomiting, and diarrhea. 2. History of kidney injury. 3. Right knee infection. Last dose of vancomycin and Cefepime on April 02. She does have an antibiotic spacer. 4. Morbid obesity. 5. Anemia. 6. Hypertension. 7. Depression. 8. Asthma. 9. Reflux. 10. Uterine cancer. 11. History of melanoma. 12. Former smoker. 13. Questionable urinary tract infection per the medical record, likely due to C. diff. PLAN We, from an orthopedic standpoint, will just watch. I do not see the knee looking bad at all. The patient's incision was well healed. There is no erythema or edema of the right knee. We will just following along in the patient's care. Unit #: [id number] #: [id number] Patient: MARTIN HE Dictated by... Ileana Mcbride TD: 04/09/2017 08:28 JOB #: [id number] CONSULTATION REPORT Page 1 of 1 X X CONSULTATION REPORT
--- NOTE | ~2017-04-08 | CO ---
Unit #: [id number] #: [id number] Patient: MARTIN HE [id number] [address] [place], [place] [address] [id number] I MR#: [id number] NAME: MARTIN HE. ROOM: [facility] Age: 71 Sex: F Admission Date: 04/08/2017 : 1945 Attending Physician: Norman Mota M.D. Primary Care Physician: No Primary Care Physician Consultation Date: 04/09/2017 CONSULTATION REPORT REASON FOR CONSULTATION Nausea, vomiting, diarrhea and questionable C. diff. colitis. HISTORY OF PRESENT ILLNESS This is a 71-year-old female who is well known to our service who was recently treated for culture-negative right total knee arthroplasty infection status post antibiotic spacer placement. Patient completed vancomycin and IV cefepime on April 02, 2017. Several days after antibiotics completed the family reports that she began feeling poorly. She then began with excessive nausea, vomiting and diarrhea and she was admitted through [facility] Emergency Room. ID was asked to evaluate as the patient has suspected C. diff. colitis in a patient with recent IV antibiotic use. Currently there are multiple family members in the room. There is a daughter who reports that, while the patient was on IV antibiotics, she was doing well. She was working with therapy. However, several days after completion of the antibiotics, she began with excessive diarrhea often times greater than 4 with any type of movement. She reports that this stool was watery in nature but did not report that she saw any blood. Patient denies any fever. She reports that she has feeling of being cold, but she reports that this is not new. She denied any shortness of breath or chest pain. At this time she denies any abdominal cramping or pain, and she denies any significant discomfort in her right lower extremity. Patient has been treated for her nausea and currently, at this time during my exam, did not have any diarrhea or vomiting. Patient's workup in the emergency room did reveal some leukocytosis, some acute kidney injury and also a CT scan with evidence of colonic distention, pneumatosis in the rectosigmoid area and concern for questionable ischemia or infectious etiology. Workup has been started, and patient has been given Flagyl x1 orally, and ID was asked to evaluate. PAST MEDICAL HISTORY As previously stated in the history of present illness. Also including obesity, hypertension, asthma, GERD, uterine cancer, hypoglycemia, hysterectomy, cardiac catheterization, cholecystectomy, appendectomy, history of bilateral knee replacements in the past, melanoma removed from her right lower extremity. SOCIAL HISTORY Noncontributory, but the patient has recently been in the rehab facility. Unit #: [id number] #: [id number] Patient: MARTIN HE ALLERGIES Penicillin, Levaquin and IV dye. MEDICATIONS The patient was given Flagyl x1. She recently completed vancomycin and cefepime on April 02, 2017. For other medications, please refer to the patient's MAR. PHYSICAL EXAMINATION VITAL SIGNS: Temperature is 97.9, pulse 80, blood pressure 120/62, respiratory rate 18. GENERAL: This is a female in no apparent distress who does appear weak in the bed. HEENT: Her pupils are equal. NECK: Her neck is supple. CARDIOVASCULAR: S1, S2. Regular rate and rhythm. PULMONARY: Diminished in the bases with no wheezes or rhonchi noted. ABDOMEN: Positive bowel sounds. Soft and no significant tenderness noted in any quadrant. EXTREMITIES: Right lower extremity reveals an incision that is well healed and approximated without any evidence of drainage or cellulitis. There is a brace in place that was removed for my exam. The patient is able to move both feet, and she has some trace edema. DIAGNOSTIC STUDIES LABS: BUN 35, creatinine 1.6, sodium 138, potassium 3.9, chloride 102, CO2 29, bilirubin 0.9, AST 28, ALT 11, alkaline phosphatase 75. Lactic acid 1.8. White blood cell count 13,000 on admission, currently 11.8. Hemoglobin 9.9, hematocrit 30.9, platelets 70. During patient's last hospitalization, platelets were typically above 120. Urinalysis shows WBCs 200-300, mild blood present, negative nitrites, 2+ bacteria. Culture results - Blood cultures are pending. Urine culture is pending. Stool studies are currently pending. DIAGNOSTIC IMAGING: CT scan of the abdomen and pelvis - Please see full report for complete details. In summary, the patient's CT showed colonic distention with colon fluid filled with air fluid levels. Pneumatosis is seen to a mild degree predominantly in the rectosigmoid area, probably represents benign pneumatosis; possibility of bowel ischemia, questionable secondary to colitis, but no mucosal thickening. IMPRESSION This is a 71-year-old female with recent treatment for culture-negative right total knee arthroplasty status post resection and antibiotic spacer placement who completed antibiotic therapy on April 02, 2017 with vancomycin and cefepime. Patient was initially doing well but, several days after completion of antibiotics, began with severe nausea, vomiting and diarrhea. Patient's daughter also reports that she believes that patient had positive blood cultures at that facility on April 05, and she was told that her infection counts were elevated. However, all of this is nonspecific. At this time, as workup did show leukocytosis, acute kidney injury and abnormal CT scan, there is concern for postantibiotic treatment C. diff. colitis. Would recommend to increase Flagyl to 500 mg IV q.8 hours and also add vancomycin 250 mg p.o. q.6 hours until results of C. diff. toxin are known. Will have the nursing staff call with any positive blood cultures. We will also ask the nursing staff to call [place] and Moe #: [id number] #: [id number] Patient: MARTIN HE obtain any blood cultures that were done on April 05, 2017. Patient's CT scan also showed some concern for pneumatosis or ischemic colitis, and surgery has been consulted. If the patient has no acute abdomen, surgery is continuing to monitor this patient closely. Urinalysis was noted, and there is some marked pyuria; however, urine culture is pending, and if patient does have severe C. diff. colitis, would recommend to avoid other antibiotics at this time. Patient's right total knee arthroplasty infection appears to show resolution with a healed incision with no evidence of cellulitis or drainage. Will not recommend checking inflammatory markers at this time due to showing elevation for inflammation in her gut. This will not provide us with any additional information at this time. This case will be discussed with Dr. Troy Perez. Will continue to follow patient closely. This case was also discussed with patient and her family that was at the bedside, and all questions were answered. Thank you for allowing us to participate in the care of this patient. Further recommendations to follow pending the patient's clinical course. Dictated by... Mary Beth DiazPTravisRTravisN. for Troy Joon Perez TD: 04/09/2017 11:00 JOB #: [id number] CONSULTATION REPORT Page 1 of 1 X X CONSULTATION REPORT
--- NOTE | ~2017-04-08 | DS ---
Unit #: [id number] #: [id number] Patient: MARTIN HE [id number] [address] [address] [id number] MR#: [id number] NAME: MARTIN HE ROOM: [facility] Age: 71 Sex: F Admission Date: 04/09/2017 : 1945 Discharge Date: 04/14/2017 Attending Physician: Norman Mota M.D. Primary Care Physician: No Primary Care Physician DISCHARGE SUMMARY ADDENDUM Please note that upon review of her record, patient's admitting history and physical did not have listed home medicine of Coumadin, therefore it was not started during this hospitalization. When confirmed, her last dose at [facility] was 6 mg p.o. daily and her PT/INR was therapeutic at 2.6. Therefore, I am recommending that patient be started back on Coumadin 6 mg p.o. daily and to have her PT/INR checked in about one week. Miss Lepe, our automatic data processing planner, has called [facility] to notify them of this addition to her medication and to recheck PT/INR. Dictated by... Hilary Deluna PA-C for Joon Osei/elbert TD: 04/16/2017 15:15 JOB #: [id number] DISCHARGE SUMMARY Page 1 of 1 X X DISCHARGE SUMMARY
--- NOTE | ~2017-04-08 | CR4 ---
[facility] A Service of [facility] RADIOLOGY TEXT RESULTS PATIENT: MARTIN HE LOCATION: [facility] 339-01 : [birth year] UNIT #: [id number] AGE: [address]: Norman Mota MD SEX: F ORDER DR: [id number] [facility] [address] [place], [place] [address] [id number] I MR#: [id number] Acc #: [id number] NAME: MARTIN HE : 1945 SEX: F STUDY DATE/TIME: 04/11/2017 13:56 UNIT: [address] ROOM: [facility] STUDY DESCRIPTION: CR Abdomen Flat Upright or Dec Attending Physician: Norman Mota M.D. Ordering Physician: Norman Mota M.D. Primary Care Physician: Primary Care Physician No MEDICAL IMAGING REPORT This report is preliminary unless electronic signature is present EXAM Abdomen, flat and upright HISTORY Severe abdominal pain, distended colon, short of air, nausea and vomiting x4 days. COMMENT Supine and erect views of the abdomen are reviewed. There is a CT scan for comparison abdomen and pelvis 04/04/2017. There is no evidence for free intraperitoneal air. No abnormal air-fluid level on the upright film. There is again gaseous distension of the colon and this is probably worse on comparison back to the CT scan when the bartacker view was used as a comparison study. There is probably gas to the level of the sigmoid colon or rectum. Suspect colonic ileus. Please exclude clinical concern for low colonic obstruction. IMPRESSION Gaseous distension of the colon is probably increased from CT scan 04/08/2017. I suspect this is due to colonic ileus but please exclude clinical concern for low colonic obstruction. No free air. Dictated by... Milka Pro M.D. THIS IS AN ELECTRONICALLY VERIFIED REPORT Milka Pro M.D. at 04/12/2017 7:37 AM DEWAYNE/emerita TD: 04/12/2017 05:11 [facility] A Service of [facility] RADIOLOGY TEXT RESULTS PATIENT: MARTIN HE LOCATION: [place] [id number] : [birth year] UNIT #: [id number] AGE: [address]: Norman Mota MD SEX: F ORDER DR: JOB #: [id number] MEDICAL IMAGING REPORT Page 1 of 1 COPY
--- NOTE | ~2017-04-08 | DS ---
Unit #: [id number] #: [id number] Patient: MARTIN HE [id number] [address] [place], [place] [address] [id number] I MR#: [id number] NAME: MARTIN HE ROOM: [facility] Age: Sex: F Admission Date: 04/09/2017 : 1945 Discharge Date: Attending Physician: Norman Mota M.D. Primary Care Physician: No Primary Care Physician DISCHARGE SUMMARY DISCHARGE DIAGNOSES 1. Clostridium difficile colitis and will discharge with Flagyl and vancomycin for ten more days. 2. Pneumatosis due to the Clostridium difficile colitis. 3. Acute kidney injury prerenal in nature. Renal function has stabilized at this point with a discharge creatinine of 1.4, BUN 34. 4. Recent right knee infection, have completed a course of intravenous antibiotics. Will be discharged back to [facility] for continued physical therapy and followup with Dr. Umana for additional needs. 5. Anemia. Hemoglobin and hematocrit has been stable during this hospitalization. 6. Morbidly obese. Body mass index 43. 7. History of essential hypertension. 8. History of asthma, stable on room air. 9. History of anxiety and depression, stable. 10. Gastroesophageal reflux disease. 11. Uterine cancer, status post hysterectomy. 12. History of melena, status post excision. PROCEDURES None. CONSULTANTS Dr. Umana of orthopedic surgery; Dr. Perez of infectious disease; and [facility]. IMAGING STUDIES 1. CT of abdomen and pelvis on 04/08/2017, Impression: Colonic distention. The colon is fluid filled and air fluid levels. Pneumatosis is seen to a mild degree, predominantly in the rectosigmoid. It probably represents benign pneumatosis, possibility of bowel ischemia cannot be excluded. This could also be secondary to colitis, although the mucosa is not markedly thickened. The mucosa in the proximal colon is within normal limits. 2. X-ray of abdomen 04/11/2017, Impression: Gaseous distension of the colon is probably increased from CT scan 04/08/2017. I suspect this is due to colonic ileus but please exclude clinical concern for low colonic obstruction. No free air. 3. X-ray of abdomen 04/13/2017, Impression: Increased small and large bowel gas. Nonspecific pattern may represent ileus or associated with enterocolitis. No focal dilatation is identified to suggest a focal obstruction. No abnormal masses or calcifications. Unit #: [id number] #: [id number] Patient: MARTIN HE LABS ON THE DAY OF DISCHARGE The patient's labs includes BMP - glucose 81, BUN 34, creatinine 1.4, sodium 138, potassium 3.8, chloride 108 CO2 24, calcium 7.3. CBC with WBC of 16.8, this is reduced from 21,000 yesterday, rbc's 3.54, hemoglobin 9.9, hematocrit 31.3, MCV 88.4, MCH 27.8, MCHC 31.5, RDW 15.6, platelets 110, MPV 9.9. HOSPITAL COURSE The patient is a pleasant 71-year-old female with a past medical history of recent right knee infection and was discharged with vancomycin and cefepime. The last dose was 04/02/2017, as well as history of morbidly obese, anemia, essential hypertension, anxiety, depression, asthma, GERD, uterine cancer, and melanoma was transferred here from [facility] due to nausea, vomiting, diarrhea, and weakness. Patient was hospitalized at [facility] from 02/18/2017 through 03/02/2017 for right total knee infection. Underwent hardware removal and placement of spacer by Dr. Umana of orthopedic surgery and was to receive complete antibiotics until 04/02/2017 with vancomycin and cefepime. In the emergency department CT of abdomen and pelvis was done, which showed concerning pneumatosis involving the rectosigmoid concerning for ischemic bowel versus colitis. Surgery was consulted in the emergency room who had recommended antibiotics. The following day she was seen by surgery who felt that patient did not have an acute abdomen. Therefore, had recommended continue with antibiotics. The patient's stool culture was sent, which was positive for C. diff colitis. She was seen in consultation with infectious disease and under their guidance the patient is now on vancomycin orally, as well as Flagyl orally. Her stools now were formed and the number of bowel movements have also reduced. She has no abdominal pain. No cramping and clinically she has much improved. Her white count has reduced from 21,000 the day before to 16,000 today. The patient is afebrile at this time. She is ready to be discharged back to the [facility] facility. She will followup with her primary care physician within one to two days upon discharge from the facility and to followup with Dr. Umana in about two weeks for further planning with any further orthopedic surgery for the right knee. DISCHARGE CONDITION Stable back to the rehab facility. DISCHARGE DIET To resume back to a heart healthy diet, as was prior to hospitalization. DISCHARGE MEDICATIONS 1. Albuterol nebulized every 6 hours needed for shortness of breath and no wheezing. 2. With regards to patient's acute kidney injury, I will not be restarting patient's losartan with hydrochlorothiazide as the blood pressure has been stable throughout this hospitalization, without the need for it. 3. She will continue with vancomycin 250 mg orally every 6 hours for the next ten days. 4. Flagyl 500 mg every 8 hours for the next ten days. 5. Simethicone 187.5 mg orally 3 times daily for the next ten days. 6. Spiriva 18 mcg inhaled daily. 7. Zoloft 12.5 mg orally daily. 8. Zofran 4 mg orally every 6 hours as needed for nausea and vomiting. 9. Lasix will be resumed 20 mg orally at bedtime. 10. Singulair 10 mg orally daily. Unit #: [id number] #: [id number] Patient: MARTIN HE 11. Florastor 250 mg orally twice daily. 12. Melatonin, I will be stopping this. 13. Hydrocodone with acetaminophen 5/325 1 tablet every 4 hours as needed for pain, a prescription for 18 was given. 14. Prilosec 20 mg orally daily. 15. I will be resuming her isosorbide mononitrate extended release, 30 mg orally daily, hold if systolic blood pressure is less than 110. 16. Nitrostat 0.4 mg sublingually every 5 minutes as needed for chest pain for a total dose of 3 to be used. 17. Will be holding gabapentin. DISCHARGE INSTRUCTIONS Please recheck a CBC and BMP within three days, as patient does have C. diff colitis and has diarrhea with hypokalemia and hypomagnesemia. This dictation took 40 minutes including patient education and to coordinate care. Dictated by... Hilary Deluna PA-C for Joon Osei/navarro GUAMAN: 04/14/2017 09:21 TD: 04/14/2017 10:15 JOB #: [id number] DISCHARGE SUMMARY Page 1 of 1 X X DISCHARGE SUMMARY
--- NOTE | ~2017-04-08 | CR7 ---
[facility] A Service of [facility] RADIOLOGY TEXT RESULTS PATIENT: MARTIN HE LOCATION: [facility] [id number] : [birth year] UNIT #: [id number] AGE: [address]: Norman Mota MD SEX: F ORDER DR: [id number] [facility] [address] [place], [place] [address] [id number] I MR#: [id number] #: [id number] NAME: MARTIN HE : 1945 SEX: F STUDY DATE/TIME: 04/13/2017 5:43 UNIT: [address] ROOM: [facility] STUDY DESCRIPTION: CR Abdomen Single AP View Attending Physician: Norman Mota M.D. Ordering Physician: Physician Non-Staff Primary Care Physician: Primary Care Physician No MEDICAL IMAGING REPORT This report is preliminary unless electronic signature is present EXAM Single-view abdomen HISTORY Abdominal pain, distension, nauseam vomiting, diarrhea. COMPARISON 04/11/2017 FINDINGS Single view of the abdomen demonstrates continued increased small and large bowel gas. Nonspecific pattern may represent ileus or associated with enterocolitis. No focal dilatation is identified to suggest a focal obstruction. The organomegaly. No abnormal masses or calcifications. Dictated by... Titi Bowers M.D. THIS IS AN ELECTRONICALLY VERIFIED REPORT Titi Bowers M.D. at 04/13/2017 3:31 PM TONIA/chad TD: 04/13/2017 08:12 JOB #: [id number] MEDICAL IMAGING REPORT Page 1 of 1 COPY
[~2017-04-08 14:21] MED LIST changes: +DOXYCYCLINE HY100 M3 PO; +NEURONTIN100 MG PO; +NITROSTAT0.4 MG SL; +QVAR7.3 G1 INH; +TYL325 PO; +ZOFRAN PO; +ZOLOFT PO
[2017-04-08 15:17] LABS: BASOPHIL% 0.2 % (0-2.5); HEMATOCRIT 33.3 % (35.0-45.0); HEMOGLOBIN 10.6 gm/dL (12.0-16.0); LYMPHOCYTE# 0.6 X10e3 (1.0-3.5); LYMPHOCYTE% 4.8 % (17.0-45.0); MEAN CELL VOLUME 87.6 FL (83-96); MEAN CORPUSCULAR HEMOGLOBIN 27.9 PG (28-34); MEAN CORPUSCULAR HGB CONC 31.9 g/dL (30-36); MONOCYTE# 0.9 X10e3 (0-1.0); MONOCYTE% 6.9 % (3.0-12.0); NEUTROPHIL# 11.5 X10e3 (1.5-7.1); NEUTROPHIL% 88.1 % (40-75); PLATELET COUNT 65 X10e3 (140-420); RED CELL DISTRIBUTION WIDTH 15.7 % (11.0-15.5)
[2017-04-08 15:19] LABS: DIFF IND YES
[2017-04-08 15:43] LABS: ALBUMIN SERUM 2.5 g/dL (3.5-5.0); BILIRUBIN, DIRECT 0.2 mg/dL (0.0-0.2); BILIRUBIN,INDIRECT 0.7 mg/dL (0.0-0.9); BILIRUBIN,TOTAL 0.9 mg/dL (0.2-2.0); BUN/CREATININE RATIO 17.5; CALCIUM SERUM 8.3 mg/dL (8.4-10.2); CREATININE SERUM 1.6 mg/dL (0.6-1.4); GLOM FILT RATE Estimated 32.3 mL/min (>60)
[2017-04-08 16:17] LABS: ANISOCYTOSIS MOD; PLATELET ESTIMATE DECREASED (NORMAL)
[2017-04-08 16:40] LABS: URINE SOURCE CLEAN CATCH
[2017-04-08 16:46] LABS: URINE APPEARANCE CLOUDY; URINE BILIRUBIN NEG (NEG); URINE BLOOD 2+ (NEG); URINE COLOR DK YELLOW; URINE GLUCOSE NEG (NEG); URINE KETONE NEG (NEG); URINE LEUKOCYTE ESTERASE 3+ (NEG); URINE NITRATE NEG (NEG); URINE PH 5.5 (5-8); URINE PROTEIN 1+ (NEG); URINE SPECIFIC GRAVITY 1.016 (1.003-1.035)
[2017-04-08 16:48] LABS: CULTURE INDICATED? YES; URBCS1 AUWI 25-50 /[HPF] (0-2); URINE BACTERIA AUWI NEG (NEGATIVE); URINE SQUAMOUS EPITHELIAL CELL OCC /[HPF]; UWBCS1 AUWI 100-200 (0-5)
[2017-04-09 06:23] LABS: INR 1.7; PROTHROMBIN TIME (PATIENT) 17.9 SECONDS (9.6-11.5)
[2017-04-09 06:24] LABS: HEMATOCRIT 30.9 % (35.0-45.0); HEMOGLOBIN 9.9 gm/dL (12.0-16.0); MEAN CELL VOLUME 87.7 FL (83-96); MEAN CORPUSCULAR HEMOGLOBIN 28.1 PG (28-34); MEAN PLATELET VOLUME 10.7 FL (6.5-11.5); RED BLOOD COUNT 3.53 X10e (3.90-5.30); RED CELL DISTRIBUTION WIDTH 15.8 % (11.0-15.5); WHITE BLOOD COUNT 11.8 X10e3 (4.0-10.5)
[2017-04-09 06:53] LABS: ALBUMIN SERUM 2.2 g/dL (3.5-5.0); BILIRUBIN,TOTAL 0.9 mg/dL (0.2-2.0); BUN/CREATININE RATIO 21.87; CALCIUM SERUM 7.9 mg/dL (8.4-10.2); CREATININE SERUM 1.6 mg/dL (0.6-1.4); GLOM FILT RATE Estimated 32.3 mL/min (>60); POTASSIUM 3.9 mmol/L (3.5-5.1)
[2017-04-10 06:09] LABS: HEMATOCRIT 32.3 % (35.0-45.0); HEMOGLOBIN 10.3 gm/dL (12.0-16.0); MEAN CELL VOLUME 87.8 FL (83-96); MEAN CORPUSCULAR HGB CONC 31.9 g/dL (30-36); MEAN PLATELET VOLUME 10.4 FL (6.5-11.5); RED BLOOD COUNT 3.68 X10e (3.90-5.30); RED CELL DISTRIBUTION WIDTH 15.7 % (11.0-15.5); WHITE BLOOD COUNT 11.7 X10e3 (4.0-10.5)
[2017-04-10 06:38] LABS: CALCIUM SERUM 7.7 mg/dL (8.4-10.2); CREATININE SERUM 1.6 mg/dL (0.6-1.4); GLOM FILT RATE Estimated 32.3 mL/min (>60); MAGNESIUM 1.6 mg/dL (1.6-3.0); POTASSIUM 3.7 mmol/L (3.5-5.1)
[2017-04-11 09:35] LABS: HEMOGLOBIN 10.6 gm/dL (12.0-16.0); MEAN CELL VOLUME 88.7 FL (83-96); MEAN CORPUSCULAR HEMOGLOBIN 27.7 PG (28-34); MEAN CORPUSCULAR HGB CONC 31.3 g/dL (30-36); MEAN PLATELET VOLUME 10.8 FL (6.5-11.5); RED BLOOD COUNT 3.83 X10e (3.90-5.30); RED CELL DISTRIBUTION WIDTH 15.4 % (11.0-15.5); WHITE BLOOD COUNT 14.4 X10e3 (4.0-10.5)
[2017-04-11 09:58] LABS: BUN/CREATININE RATIO 29.33; CALCIUM SERUM 7.7 mg/dL (8.4-10.2); CREATININE SERUM 1.5 mg/dL (0.6-1.4); MAGNESIUM 2.2 mg/dL (1.6-3.0); POTASSIUM 3.4 mmol/L (3.5-5.1)
[2017-04-12 06:36] LABS: HEMOGLOBIN 10.2 gm/dL (12.0-16.0); MEAN CELL VOLUME 89.4 FL (83-96); MEAN CORPUSCULAR HEMOGLOBIN 27.7 PG (28-34); MEAN PLATELET VOLUME 11.3 FL (6.5-11.5); RED BLOOD COUNT 3.69 X10e (3.90-5.30); RED CELL DISTRIBUTION WIDTH 15.7 % (11.0-15.5); WHITE BLOOD COUNT 14.7 X10e3 (4.0-10.5)
[2017-04-12 07:03] LABS: BUN/CREATININE RATIO 31.42; CALCIUM SERUM 7.5 mg/dL (8.4-10.2); CREATININE SERUM 1.4 mg/dL (0.6-1.4); POTASSIUM 3.1 mmol/L (3.5-5.1)
[2017-04-13 06:22] LABS: HEMATOCRIT 33.5 % (35.0-45.0); HEMOGLOBIN 10.6 gm/dL (12.0-16.0); MEAN CELL VOLUME 87.9 FL (83-96); MEAN CORPUSCULAR HEMOGLOBIN 27.9 PG (28-34); MEAN CORPUSCULAR HGB CONC 31.7 g/dL (30-36); RED BLOOD COUNT 3.81 X10e (3.90-5.30); RED CELL DISTRIBUTION WIDTH 15.8 % (11.0-15.5)
[2017-04-13 07:20] LABS: BUN/CREATININE RATIO 27.85; CALCIUM SERUM 7.5 mg/dL (8.4-10.2); CREATININE SERUM 1.4 mg/dL (0.6-1.4); MAGNESIUM 1.9 mg/dL (1.6-3.0); POTASSIUM 3.4 mmol/L (3.5-5.1)
[2017-04-14 05:58] LABS: HEMATOCRIT 31.3 % (35.0-45.0); HEMOGLOBIN 9.9 gm/dL (12.0-16.0); MEAN CELL VOLUME 88.4 FL (83-96); MEAN CORPUSCULAR HEMOGLOBIN 27.8 PG (28-34); MEAN CORPUSCULAR HGB CONC 31.5 g/dL (30-36); MEAN PLATELET VOLUME 9.9 FL (6.5-11.5); RED BLOOD COUNT 3.54 X10e (3.90-5.30); RED CELL DISTRIBUTION WIDTH 15.6 % (11.0-15.5); WHITE BLOOD COUNT 16.8 X10e3 (4.0-10.5)
[2017-04-14 06:48] LABS: BUN/CREATININE RATIO 24.28; CALCIUM SERUM 7.3 mg/dL (8.4-10.2); CREATININE SERUM 1.4 mg/dL (0.6-1.4); POTASSIUM 3.8 mmol/L (3.5-5.1)
== END 2017-04-14 15:23 | DRG 372 ==
LOC: CED 14:21 → CEDOF 19:25 → CED 19:25 → CEDOF 19:50 → CED 19:50 → CEDOF 19:50 → C3A PCU 21:30 → CEDOF 04-09 11:03 → C3A PCU 04-09 11:03
PROVIDERS: Emergency Medicine; Family Medicine; Physician Assistant Medical
DX: A04.7 Enterocolitis due to Clostridium difficile (principal); N17.9 Acute kidney failure, unspecified; K56.7 Ileus, unspecified; Z68.41 Body mass index [BMI] 40.0-44.9, adult; E66.01 Morbid (severe) obesity due to excess calories; D64.9 Anemia, unspecified; I10 Essential (primary) hypertension; F32.9 Major depressive disorder, single episode, unspecified; K21.9 Gastro-esophageal reflux disease without esophagitis; Z90.710 Acquired absence of both cervix and uterus; Z85.42 Personal history of malignant neoplasm of other parts of uterus; Z85.820 Personal history of malignant melanoma of skin; Z87.891 Personal history of nicotine dependence; K63.89 Other specified diseases of intestine; J45.909 Unspecified asthma, uncomplicated; F41.9 Anxiety disorder, unspecified
CPT/HCPCS: 36415; 74000; 74020; 74176; 80048; 80053; 80076; 81003; 82947; 83605; 83690; 83735; 85025; 85027; 85610; 87040; 87086; 87493; 92610; 94640; 94760; 96361; 96374; 96375; 99285; G8996-GN; G8997-GN; G8998-GN; J1170; J2060; J2405; J2550; J3475

== ENCOUNTER → 2017-06-16 | Outpatient (CLI) | payer MEDICARE, OTHER ==
[~2017-06-16] MED LIST changes: +ALBUTEROL2.5 MG/3 M; +COUMADIN5 MG PO; +HYDROCODON-ACE1 EAC7 PO; +ISOSORBIDE MONO30 M1 PO; +LASIX20 MG PO; +MELATIN3 MG PO; +NEURONTIN300 MG PO; +PERCOCET10 PO; +PRILOSEC PO; +SPIRIVA18 MCG INH
--- NOTE | ~2017-06-16 | EKG ---
PATIENT: MARTIN HE UNIT #: [id number] Ventricular Rate: 68 BPM Atrial Rate: 68 BPM P-R Interval: 136 ms QRS Duration: 92 ms Q-T Interval: 424 ms QTC Calculation(Bezet): 450 ms P [place]: 45 degrees Calculated R [place]: 39 degrees Calculated T [place]: 57 degrees Diagnosis Line: Normal sinus rhythm with sinus arrhythmia Diagnosis Line: Normal ECG Diagnosis Line: When compared with ECG of 17-SEP-2016 19:27, Diagnosis Line: No significant change was found Diagnosis Line: Confirmed by GURJIT FUCHS MD ([id number]) on Diagnosis Line: 06/18/2017 7:28:01 AM INTERPRETING MD: JEF ATKINSON
--- NOTE | ~2017-06-16 | CO ---
Unit #: [id number] #: [id number] Patient: MARTIN HE [id number] [address] [place], [place] [address] [id number] O MR#: [id number] NAME: MARTIN HE ROOM: Age: 72 Sex: F Admission Date: 06/16/2017 : 1945 Attending Physician: Adi Umana M.D. Primary Care Physician: Primary Care Physician No Consultation Date: 06/16/2017 CONSULTATION REPORT REASON FOR CONSULTATION Preoperative medical evaluation prior to reimplantation of the right total knee, status post right knee infection scheduled by Dr. Umana for 06/25/2017. HISTORY OF PRESENT ILLNESS The patient is a 71-year-old female, who presents to preprocedural screening for the reason as indicated above. Per review of medical records in [facility], the patient has a history of right knee infection with removal of right total knee and placement of a spacer in the spring of this year. She completed her vancomycin and cefepime with last dose of antibiotic on 04/02/2017. The patient presented to [facility] with Clostridium difficile colitis, for which she was treated with Flagyl and vancomycin. The patient complains of mild dysuria, which started this morning but has no other complaints at this time. She denies history of myocardial infarction, congestive heart failure, CVA, TIA, diabetes, and kidney disease. Denies upper chest, upper back, arm, neck, jaw, pain or pressure. No lightheadedness, dizziness, presyncope, syncope, or palpitations. Denies snoring or shortness of breath when asleep. She has been evaluated by Dr. Umana and scheduled for the above-referenced procedure. PAST MEDICAL HISTORY 1. Osteoarthritis. 2. Clostridium difficile in 03/2017. 3. History of anemia. 4. Hypertension. 5. Morbid obesity with BMI of 33. The patient reports marked weight loss. 6. Depression. 7. Asthma. 8. History of right knee infection. 9. History of recurrent urinary tract infections. 10. Left nose scabbed area x1. 11. Left facial scabbed area x1. 12. The patient's last dental exam has been "awhile.". PAST SURGICAL HISTORY 1. Hysterectomy. 2. Cholecystectomy. 3. Bilateral knee replacements. 4. Appendectomy. 5. Lipoma excision, left arm. 6. Partial thyroidectomy. 7. Right total knee hardware removal with placement of antibiotic spacer. Unit #: [id number] #: [id number] Patient: MARTIN HE 8. Excision of melanoma from the right leg. The patient denies personal and family history of complications to anesthesia. ALLERGIES Denies latex allergy. Medication allergies include penicillin, sulfa, poliomyelitis vaccine, and levofloxacin. Other allergies; bee venom protein causes airway to close and red dye. CURRENT MEDICATIONS Prilosec 20 mg p.o. daily, Spiriva 1 inhalation daily, isosorbide mononitrate ER 30 mg p.o. daily, losartan and hydrochlorothiazide 100/25 mg tab one p.o. daily, Singulair 10 mg p.o. daily, furosemide 20 mg p.o. daily, melatonin 3 mg p.o. at bedtime, hydrocodone and acetaminophen 5/325 mg tab one p.o. q.4 hours p.r.n. pain, albuterol sulfate q.4 hours p.r.n. inhaled, Neurontin 300 mg p.o. b.i.d. SOCIAL HISTORY Denies tobacco use, EtOH use, or illicit drug use. FAMILY HISTORY Per review of H and P dated on 04/08/2017, malignancy in her father. REVIEW OF SYSTEMS Slow to nonhealing papular growth on left side of nose and left facial area near the nose. We scabbed that intermittently slough after application of triple antibiotic ointment. Dysuria that started this morning associated with foul-smelling urine. Denies fever, chills, nausea, vomiting, or diarrhea. Bilateral lower extremity edema which worsens with feet in dependent position. Last dental exam has been "awhile." A 10-point review of systems is conducted and otherwise negative except as indicated under history of present illness above. PHYSICAL EXAMINATION GENERAL: A 71-year-old obese female, awake, alert, seated in wheelchair, in no acute distress with immobilizer on right knee. VITAL SIGNS: Temperature 97, heart rate 69, respiratory rate 18, blood pressure 147/70, oxygen saturation 97% on room air. HEENT: Atraumatic and normocephalic. Sclerae anicteric. No discharge from eyes, ears, or nares. DERM: Left nasal and left facial papules with dark erythematous scabbs without drainage or open wound areas. LYMPH: No preauricular, postauricular, tonsillar, submental, anterior or posterior cervical adenopathy. ENDOCRINE: No thyromegaly, thyroid nodules, or tenderness. RESPIRATORY: Clear to auscultation in all galvez bilaterally without wheezes, rhonchi, or rales. CARDIOVASCULAR: S1, S2. Regular rate and rhythm without murmur or rub. GI: Bowel sounds are positive x4. Soft, nontender, nondistended. EXTREMITIES: Bilateral lower extremity peripheral obesity versus 2+ dependent edema without cyanosis or clubbing. NEUROLOGIC: Alert and oriented x3. Speech clear. Cranial nerves II through XII are grossly intact. Follows directions for examination. MUSCULOSKELETAL: Strength 5/5 in all extremities bilaterally to flexion and extension with exception of right lower extremity. Tested with dorsiflexion and plantar flexion of the right foot, 5/5. Unit #: [id number] #: [id number] Patient: MARTIN HE DIAGNOSTIC STUDIES LABORATORY RESULTS: WBC 3.1, hemoglobin 11.0, hematocrit 34.6, platelets 67,000, sedimentation rate 55. Sodium 137, potassium 3.9, chloride 104, CO2 of 28, glucose 124, BUN 15, creatinine 0.8, calcium 9.1. AST 34, ALT 13, alkaline phos 88, bilirubin total 0.6, total protein 7.5, albumin 3.0. PT 11.4, INR 1.1. Urinalysis; leukocyte esterase 3+, nitrite positive, protein negative, glucose negative, ketone negative, blood 1+, rbc's 2 to 5, wbc's innumerable, bacteria 4+, squamous cells none seen, hyaline cast 2 to 5. Urine culture and sensitivity pending at this time. CRP 0.6. Blood type A positive with antibody screen negative. MRSA nasal swab report pending at this time. IMAGING STUDIES: Two-view chest x-ray report pending at this time. CARDIOVASCULAR STUDIES: A 12-lead EKG; normal sinus rhythm with sinus arrhythmia, normal ECG. Confirmed report pending at this time. IMPRESSION The patient is a 71-year-old female, who presents to preprocedural screening for, 1. Preoperative medical evaluation prior to reimplant right total knee by Dr. Umana on 06/25/2017. The patient's Sen revised cardiac risk index is equal to 0.4%. This represents the patient's risk of fatal or nonfatal myocardial infarction, cardiopulmonary arrest, arrhythmia and/or pulmonary edema. This has been discussed in detail with the patient. She wishes to proceed with surgery as scheduled at this time. 2. High risk for obstructive sleep apnea. The patient states that she has lost a large amount of weight. She does not snore. The patient will be placed on obstructive sleep apnea protocol postoperatively. 3. History of Clostridium difficile colitis in 03/2017. The patient has no symptoms at this time. 4. History of anemia. H and H stable today. 5. Thrombocytopenia. The patient has had intermittent thrombocytopenia per review of previous values in [facility]. We will recommend repeat CBC a.m. of OR to check thrombocytes at that time. 6. Hypertension. Follow blood pressure postoperatively. Continue current medications and adjust accordingly. 7. Morbid obesity, BMI of 33. Weight loss is recommended. 8. Depression, stable. 9. Asthma. We will add inhaled bronchodilators and continue the patient's home dose of Spiriva postoperatively. 10. History of right knee infection. The patient will be placed on contact precautions if indicated. 11. Left nose scabbed area and left face scabbed area with slow versus nonhealing. The patient has been advised to schedule an appointment with her dietitian for further evaluation and management including possible biopsy of these areas if needed and she has verbalized understanding. The patient's daughter is present today who has verbalized understanding as well. 12. Probable urinary tract infection. The patient is symptomatic. Given the patient's allergies, I have given her prescription for Macrobid 100 mg one p.o. q.12 hours x7 days, #14, no refills. I have also ordered a straight cath, UA with C and S if indicated the a.m. of OR to ensure clearance of infection. The patient will be contacted if urine culture and sensitivity results indicate that the bacteria is nonsensitive to Macrobid. 13. Poor dentition. The patient is anxious to have her knee replaced. This is not a new issue for the patient. Recommend evaluation, however, Unit #: [id number] #: [id number] Patient: MARTIN HE ultimate decision prior to replacement of right knee will be per order of Dr. Umana. Thank you for allowing us to participate in the care of this patient. We will gladly follow the patient for postop medical management pending order of Dr. Umana. Dictated by... Sandy Koehler A.P.R.N. for Joon King/krystina TD: 06/17/2017 06:40 JOB #: [id number] CONSULTATION REPORT Page 1 of 1 X Sandy Koehler BLOCKLAYER X CONSULTATION REPORT
--- NOTE | ~2017-06-16 | CR63 ---
[facility] A Service of [facility] & [facility] RADIOLOGY TEXT RESULTS PATIENT: MARTIN HE LOCATION: [facility] : [birth year] UNIT #: [id number] AGE: [address]: Adi Umana MD SEX: F ORDER DR: [id number] [facility] [address] [place], [place] [address] [id number] O MR#: [id number] #: [id number] NAME: MARTIN HE. : 1945 SEX: F STUDY DATE/TIME: 06/16/2017 13:31 UNIT: [facility] ROOM: STUDY DESCRIPTION: CR Chest 2 View Attending Physician: Adi Umana M.D. Referring Physician: Adi Umana M.D. Ordering Physician: Adi Umana M.D. Primary Care Physician: No Primary Care Physician MEDICAL IMAGING REPORT This report is preliminary unless electronic signature is present EXAM Chest, 06/16/2017; [facility]. HISTORY 72-year-old woman preop clearance repeat arthroplasty right knee. History of infection. COMPARISON Chest, 03/13/2016. FINDINGS Two view chest demonstrates normal heart size. Calcified granulomas and calcified hilar/mediastinal nodes are stable. Lungs are otherwise expanded and clear. IMPRESSION Stable healed granulomatous disease. No acute chest finding. Dictated by... Henry Tong M.D. THIS IS AN ELECTRONICALLY VERIFIED REPORT Henry Tong M.D. at 06/17/2017 7:14 AM GIDEON/sukumar TD: 06/16/2017 21:27 JOB #: [id number] MEDICAL IMAGING REPORT Page 1 of 1 COPY
[2017-06-16 11:15] LABS: HEMATOCRIT 34.6 % (35.0-45.0); MEAN CELL VOLUME 88.8 FL (83-96); MEAN CORPUSCULAR HEMOGLOBIN 28.3 PG (28-34); MEAN CORPUSCULAR HGB CONC 31.9 g/dL (30-36); MEAN PLATELET VOLUME 10.1 FL (6.5-11.5); RED BLOOD COUNT 3.89 X10e (3.90-5.30); RED CELL DISTRIBUTION WIDTH 15.9 % (11.0-15.5); WHITE BLOOD COUNT 3.1 X10e3 (4.0-10.5)
[2017-06-16 11:24] LABS: INR 1.1; PROTHROMBIN TIME (PATIENT) 11.4 SECONDS (10.0-11.7)
[2017-06-16 11:25] LABS: URINE APPEARANCE CLOUDY; URINE BILIRUBIN NEG (NEG); URINE BLOOD 1+ (NEG); URINE COLOR YELLOW; URINE GLUCOSE NEG (NEG); URINE KETONE NEG (NEG); URINE LEUKOCYTE ESTERASE 3+ (NEG); URINE NITRATE POS (NEG); URINE PH 6.5 (5-8); URINE PROTEIN NEG (NEG); URINE SPECIFIC GRAVITY 1.014 (1.003-1.035)
[2017-06-16 11:27] LABS: CULTURE INDICATED? YES; URINE BACTERIA AUWI 4+ (NEGATIVE); URINE SQUAMOUS EPITHELIAL CELL NONE SEEN /[HPF]; UWBCS1 AUWI INNUM (0-5)
[2017-06-16 11:44] LABS: BILIRUBIN,TOTAL 0.6 mg/dL (0.2-2.0); BUN/CREATININE RATIO 18.75; CALCIUM SERUM 9.1 mg/dL (8.4-10.2); CREATININE SERUM 0.8 mg/dL (0.6-1.4); GLOM FILT RATE Estimated 74.2 mL/min (>60); POTASSIUM 3.9 mmol/L (3.5-5.1); PROTEIN TOTAL SERUM 7.5 g/dL (6.0-8.3)
[2017-06-16 11:48] LABS: URINE SOURCE CLEAN CATCH
== END | disposition home or self-care (01) ==
LOC: CAMB 09:53
PROVIDERS: Orthopaedic Surgery
DX: Z01.818 Encounter for other preprocedural examination (principal); K21.9 Gastro-esophageal reflux disease without esophagitis; I10 Essential (primary) hypertension; J45.909 Unspecified asthma, uncomplicated; C55 Malignant neoplasm of uterus, part unspecified; I25.10 Atherosclerotic heart disease of native coronary artery without angina pectoris; E16.2 Hypoglycemia, unspecified; C43.9 Malignant melanoma of skin, unspecified; D71 Functional disorders of polymorphonuclear neutrophils
CPT/HCPCS: 36415; 71020; 80053; 81003; 85027; 85610; 85652; 86140; 86850; 86900; 86901; 87070; 87086; 87088; 87186; 93005

== ENCOUNTER 2017-06-25 08:29 | Inpatient (IN) | payer MEDICARE, OTHER ==
[~2017-06-25] VITALS: Ht 170.2 cm; Wt 98.2 kg
--- NOTE | ~2017-06-25 | DS ---
Unit #: [id number] #: [id number] Patient: MARTIN HE [id number] [facility] [address] [facility] [place], [place] [address] [id number] I MR#: [id number] NAME: MARTIN HE ROOM: 463 Age: 72 Sex: F Admission Date: 06/25/2017 : 1945 Discharge Date: 06/28/2017 Attending Physician: Adi Umana M.D. Primary Care Physician: Generic Doctor Not In System DISCHARGE SUMMARY ADMITTING PHYSICIAN Adi Umana M.D. CONSULTING PHYSICIAN HIPS for medical management. PROCEDURE Right total knee re-implant. HOSPITAL COURSE The patient was admitted to [facility] with a history of right total knee re-implant. The patient tolerated this procedure well and no apparent complications. Her incision is healing well. Neurovascular exam is intact. She had 2+ pulses in her lower extremities. Today, her temperature is 97.2, blood pressure 140/49, heart rate 77 and regular, respirations 16. The plan will be to discharge her home later today if okay with HIPS. DISPOSITION Home with home health. DISCHARGE MEDICATIONS Medications per med rec list. Dr. Short filled out. DIAGNOSTIC STUDIES LABORATORY: INR is 1.5. FOLLOWUP INSTRUCTIONS The patient will follow up with Dr. Umana on , August 15, 2017. The patient will followed by [facility]. Will need pro times on Mondays and called to our office at [phone]. The patient will wear TARA hose during the day and off at night. The patient should not shower until the day after anthony removed. The patient should not drive until seen by Dr. Umana. The patient will participate in physical therapy including active, active assist range of motion, strengthening, and progressive ambulation to begin with a walker and progress to cane as tolerated. Dictated by... Moshe Vazquez P.A.-C- for Joon Mckeon/estela Unit #: [id number] #: [id number] Patient: MARTIN HE TD: 06/28/2017 09:21 JOB #: [id number] DISCHARGE SUMMARY Page 1 of 1 X X DISCHARGE SUMMARY
--- NOTE | ~2017-06-25 | OR ---
Unit #: [id number] #: [id number] Patient: MARTIN HE [id number] [address] [place], [place] [address] [id number] I MR#: [id number] NAME: MARTIN HE ROOM: 463 Date of Procedure: 06/25/2017 Admission Date: 06/25/2017 Surgeon: Adi Umana M.D. : 1945 Attending Physician: Adi Umana M.D. Primary Care Physician: Generic Doctor Not In System OPERATIVE REPORT PREOPERATIVE DIAGNOSIS Resolved infection, right knee. POSTOPERATIVE DIAGNOSIS Resolved infection, right knee. PROCEDURE PERFORMED Removal of antibiotic spacer and reimplantation, right knee. STAGE SET UP WORKER Kyle. ANESTHESIA Adductor canal block plus general. BLOOD LOSS About 200 mL. DESCRIPTION OF PROCEDURE The patient was brought to the holding room, given 1.5 g of vancomycin. She then had an adductor canal block performed. She was brought back to the operating room, given a general anesthetic. Tourniquet placed around the right thigh. The right leg was prepped and draped in a sterile fashion, and the tourniquet was inflated to 300. The patient then had the anterior skin incision used, subcu dissected away, and a medial arthrotomy was performed. Clear fluid was encountered. This was cultured. The patella was mobilized and moved laterally. Scar tissue was debrided from the suprapatellar pouch and the medial and lateral gutters. We then fragmented the antibiotic spacer and removed the pieces of bone cement. After this was done, we were able to flex the knee. We debrided the posterior condylar region and the medial and lateral gutters once again, and then reamed the canals up to 14 on both the tibia and the femur. We then used the reamers for the MBT sleeve and the [place] femoral sleeve on the femoral side. The broaches were used on the tibial side up to a size 45, and then the tibia was sized for the revision tray, and it was found to be a size 3. The femur was sized at 4. Broaches were used for the [place] femoral sleeve up to 45, and the patient then had the box cut made and the chamfer cuts made off the sleeve for the size 4 TC3 femoral component. Once the cuts were made, the broaches were removed. The trials were then positioned and we found that the 12.5 insert was the appropriate thickness. The patella has then had the scar tissue debrided and was cut smooth, and a 38 patella was the appropriate size. The 3 Unit #: [id number] #: [id number] Patient: MARTIN HE drill holes were made. We then removed all the trials of posterior capsular region and periosteum was injected with a ropivacaine mixture. The real components were opened and assembled. The knee was irrigated and dried and then all 3 components were cemented. Once again, we cemented under the tray only on the tibia and under the femoral component. Once the cement was hardened, it was judged that the 12.5 insert was the appropriate thickness, so the 12.5 insert for the size 4 TC3 femoral component was opened and then placed in the tray with an RP insert. The knee came to full extension. Had good stability in extension and flexion. The tourniquet was released. Hemostasis was obtained. The rest of ropivacaine mixture was injected. A drain was positioned and then the patella was checked. We found we needed a lateral release, this was performed and then the wound was closed using 0 Ethibond in the arthrotomy, 0 and 2-0 Vicryl in the subcutaneous, and anthony in the skin. Dictated by... Joon Mckeon/krystina TD: 06/27/2017 16:57 JOB #: [id number] OPERATIVE REPORT Page 1 of 1 X Adi Umana MD X PROCEDURE OPERATIVE NOTE
[~2017-06-25 08:29] MED LIST changes: -ALBUTEROL2.5 MG/3 M; -COUMADIN5 MG PO; -HYDROCODON-ACE1 EAC7 PO; -ISOSORBIDE MONO30 M1 PO; -LASIX20 MG PO; -MELATIN3 MG PO; -NEURONTIN300 MG PO; -PERCOCET10 PO; -PRILOSEC PO; -SPIRIVA18 MCG INH
[2017-06-25 09:55] LABS: URINE SOURCE CATH
[2017-06-25 10:04] LABS: HEMATOCRIT 33.5 % (35.0-45.0); MEAN CELL VOLUME 88.2 FL (83-96); MEAN CORPUSCULAR HGB CONC 32.8 g/dL (30-36); MEAN PLATELET VOLUME 10.7 FL (6.5-11.5); RED BLOOD COUNT 3.79 X10e (3.90-5.30); RED CELL DISTRIBUTION WIDTH 15.5 % (11.0-15.5); WHITE BLOOD COUNT 3.1 X10e3 (4.0-10.5)
[2017-06-25 10:05] LABS: URINE APPEARANCE CLOUDY; URINE BILIRUBIN NEG (NEG); URINE BLOOD TRACE (NEG); URINE COLOR YELLOW; URINE GLUCOSE NEG (NEG); URINE KETONE NEG (NEG); URINE LEUKOCYTE ESTERASE 3+ (NEG); URINE NITRATE POS (NEG); URINE PROTEIN NEG (NEG); URINE SPECIFIC GRAVITY 1.012 (1.003-1.035)
[2017-06-25 10:06] LABS: CULTURE INDICATED? YES; U HYALINE CASTS AUWI 0-2 /[LPF]; URINE BACTERIA AUWI 4+ (NEGATIVE); URINE SQUAMOUS EPITHELIAL CELL NONE SEEN /[HPF]; UWBCS1 AUWI 50-100 (0-5)
[2017-06-25 10:19] LABS: INR 1.1; PROTHROMBIN TIME (PATIENT) 12.1 SECONDS (10.0-11.7)
[2017-06-25] MEDS ORDERED: NEURONTIN300 MG PO (11:23)
[2017-06-25] MEDS ORDERED: PRILOSEC PO (15:38)
[2017-06-25] MEDS ORDERED: SPIRIVA18 MCG INH (15:39)
[2017-06-25] MEDS ORDERED: LOSARTAN-HCTZ1 EAC3 PO (15:40)
[2017-06-25] MEDS ORDERED: ISOSORBIDE MONO30 M1 PO (15:40)
[2017-06-25] MEDS ORDERED: SINGULAIR PO (15:41)
[2017-06-25] MEDS ORDERED: LASIX20 MG PO (15:42)
[2017-06-25] MEDS ORDERED: MELATIN3 MG PO (15:42)
[2017-06-25] MEDS ORDERED: HYDROCODON-ACE1 EAC7 PO (15:44)
[2017-06-25] MEDS ORDERED: ALBUTEROL2.5 MG/3 M (15:46)
[2017-06-26 07:37] LABS: HEMATOCRIT 27.1 % (35.0-45.0); LYMPHOCYTE# 0.7 X10e3 (1.0-3.5); LYMPHOCYTE% 15.4 % (17.0-45.0); MEAN CELL VOLUME 88.4 FL (83-96); MEAN CORPUSCULAR HEMOGLOBIN 29.5 PG (28-34); MEAN CORPUSCULAR HGB CONC 33.3 g/dL (30-36); MEAN PLATELET VOLUME 10.8 FL (6.5-11.5); MONOCYTE# 0.4 X10e3 (0-1.0); MONOCYTE% 8.1 % (3.0-12.0); NEUTROPHIL# 3.4 X10e3 (1.5-7.1); NEUTROPHIL% 76.5 % (40-75); PLATELET COUNT 53 X10e3 (140-420); RED BLOOD COUNT 3.06 X10e (3.90-5.30); RED CELL DISTRIBUTION WIDTH 15.1 % (11.0-15.5); WHITE BLOOD COUNT 4.5 X10e3 (4.0-10.5)
[2017-06-26 07:38] LABS: DIFF IND NO
[2017-06-26 07:59] LABS: INR 1.2; PROTHROMBIN TIME (PATIENT) 12.9 SECONDS (10.0-11.7)
[2017-06-26 08:07] LABS: BUN/CREATININE RATIO 22.22; CALCIUM SERUM 8.2 mg/dL (8.4-10.2); CREATININE SERUM 0.9 mg/dL (0.6-1.4); GLOM FILT RATE Estimated 64.4 mL/min (>60); POTASSIUM 4.3 mmol/L (3.5-5.1)
[2017-06-27 03:42] LABS: BASOPHIL% 0.1 % (0-2.5); EOSINOPHIL% 0.1 % (0.0-7.0); HEMATOCRIT 24.5 % (35.0-45.0); LYMPHOCYTE# 1.3 X10e3 (1.0-3.5); LYMPHOCYTE% 23.3 % (17.0-45.0); MEAN CELL VOLUME 89.4 FL (83-96); MEAN CORPUSCULAR HGB CONC 32.5 g/dL (30-36); MEAN PLATELET VOLUME 11.4 FL (6.5-11.5); MONOCYTE# 0.5 X10e3 (0-1.0); NEUTROPHIL# 3.7 X10e3 (1.5-7.1); NEUTROPHIL% 67.5 % (40-75); PLATELET COUNT 55 X10e3 (140-420); RED BLOOD COUNT 2.74 X10e (3.90-5.30); RED CELL DISTRIBUTION WIDTH 15.1 % (11.0-15.5); WHITE BLOOD COUNT 5.5 X10e3 (4.0-10.5)
[2017-06-27 03:43] LABS: DIFF IND YES
[2017-06-27 03:48] LABS: INR 1.3; PROTHROMBIN TIME (PATIENT) 14.4 SECONDS (10.0-11.7)
[2017-06-27 04:15] LABS: PLATELET ESTIMATE DECREASED (NORMAL)
[2017-06-27 04:17] LABS: ANISOCYTOSIS SL
[2017-06-27 17:06] LABS: HEMATOCRIT 27.2 % (35.0-45.0); HEMOGLOBIN 8.9 gm/dL (12.0-16.0)
[2017-06-28 03:08] LABS: INR 1.5; PROTHROMBIN TIME (PATIENT) 16.3 SECONDS (10.0-11.7)
[2017-06-28] MEDS ORDERED: COUMADIN5 MG PO (11:56)
[2017-06-28] MEDS ORDERED: PERCOCET10 PO (11:57)
== END 2017-06-28 14:49 | disposition home health service (06) | DRG 467 ==
LOC: CSUR 08:29 → CEDOF 11:30 → CSUR 11:30 → CEDOF 16:33 → CSUR 16:33 → C4B 16:35 → CEDOF 16:35 → C4B 06-27 06:58 → C2A 06-27 06:58 → C4C 06-27 17:50 → C2A 06-27 17:50 → C4C 06-28 14:49
PROVIDERS: Family Medicine; Orthopaedic Surgery
PROC: 0SPC0JZ Removal of Synthetic Substitute from Right Knee Joint, Open Approach (ICD-10-PCS; 2017-06-25)
PROC: 0SPC08Z Removal of Spacer from Right Knee Joint, Open Approach (ICD-10-PCS; 2017-06-25)
PROC: 0SRC0J9 Replacement of Right Knee Joint with Synthetic Substitute, Cemented, Open Approach (ICD-10-PCS; principal; 2017-06-25 11:30)
DX: Z47.33 Aftercare following explantation of knee joint prosthesis (principal); N39.0 Urinary tract infection, site not specified; B96.20 Unspecified Escherichia coli [E. coli] as the cause of diseases classified elsewhere; E66.9 Obesity, unspecified; Z68.33 Body mass index [BMI] 33.0-33.9, adult; K21.9 Gastro-esophageal reflux disease without esophagitis; Z85.42 Personal history of malignant neoplasm of other parts of uterus; Z90.49 Acquired absence of other specified parts of digestive tract; Z90.710 Acquired absence of both cervix and uterus; Z88.1 Allergy status to other antibiotic agents; Z88.0 Allergy status to penicillin; Z88.2 Allergy status to sulfonamides; Z88.7 Allergy status to serum and vaccine; Z91.012 Allergy to eggs; Z91.030 Bee allergy status
CPT/HCPCS: 80048; 81003; 85014; 85018; 85025; 85027; 85610; 87070; 87075; 87086; 87088; 87186; 87205; 94640; 94664; 94760; 97110; 97116; 97162; 97530; C1713; C1776; G8978-GP; G8979-GP; J0131; J0171; J0696; J0735; J1100; J1170; J1650; J1885; J2175; J2250; J2405; J2795; J3010; J3370

== ENCOUNTER → 2017-07-23 | Outpatient (CLI) | payer MEDICARE, OTHER ==
[~2017-07-23] MED LIST changes: +ALBUTEROL2.5 MG/3 M; +COUMADIN5 MG PO; +HYDROCODON-ACE1 EAC7 PO; +ISOSORBIDE MONO30 M1 PO; +LASIX20 MG PO; +MELATIN3 MG PO; +NEURONTIN300 MG PO; +PERCOCET10 PO; +PRILOSEC PO; +SPIRIVA18 MCG INH
[2017-07-23 16:50] LABS: INR 2.1; PROTHROMBIN TIME (PATIENT) 23.1 SECONDS (10.0-11.7)
== END | disposition home or self-care (01) ==
LOC: CLAB 16:03
PROVIDERS: Orthopaedic Surgery
DX: Z51.81 Encounter for therapeutic drug level monitoring (principal); Z79.01 Long term (current) use of anticoagulants
CPT/HCPCS: 36415; 85610